=== PATIENT | female | born 1950 | race Caucasian/White ===

== ENCOUNTER → 2017-03-08 | Outpatient (CLI) | payer MEDICARE ==
--- NOTE | 2017-03-09 08:08 | MM ---
Reason for exam: screening (asymptomatic). Last mammogram was performed 1 year ago. History: Patient is postmenopausal. Family history of breast cancer in mother. Took estrogen for 1 year beginning at age 52. Physical Findings: A clinical breast exam by your physician is recommended on an annual basis and results should be correlated with mammographic findings. MG 3D Screening Mammo W/Cad Bilateral CC and MLO view(s) were taken. Prior study comparison: March 04, 2016, bilateral MG 3d screening mammo w/cad. February 26, 2015, bilateral MG screening mammo w CAD. The breast tissue is almost entirely fat. No significant changes when compared with prior studies. ASSESSMENT: Benign, BI-RAD 2 RECOMMENDATION: Routine screening mammogram of both breasts in 1 year.
== END | disposition home or self-care (01) ==
LOC: RADMAMWWP 09:29
PROVIDERS: ATTEND Family Medicine
DX: Z12.31 Encounter for screening mammogram for malignant neoplasm of breast (principal)
CPT/HCPCS: 77063; G0202

== ENCOUNTER → 2017-05-27 | Outpatient (CLI) | payer MEDICARE ==
[2017-05-27 14:38] LABS: Magnesium 1.5 mg/dL (1.6-2.3); Potassium 3.3 mmol/L (3.5-5.1)
== END | disposition home or self-care (01) ==
LOC: LABWHC1 13:17
PROVIDERS: ATTEND Family Medicine
DX: E87.6 Hypokalemia (principal)
CPT/HCPCS: 36415; 83735; 84132

== ENCOUNTER → 2018-04-06 | Outpatient (CLI) | payer MEDICARE ==
--- NOTE | 2018-04-07 11:28 | MM ---
Reason for exam: screening (asymptomatic). Last mammogram was performed 1 year and 1 month ago. History: Patient is postmenopausal. Family history of breast cancer in mother. Took estrogen for 1 year beginning at age 52. Physical Findings: A clinical breast exam by your physician is recommended on an annual basis and results should be correlated with mammographic findings. MG 3D Screening Mammo W/Cad Bilateral CC and MLO view(s) were taken. Prior study comparison: March 08, 2017, bilateral MG 3d screening mammo w/cad. March 04, 2016, bilateral MG 3d screening mammo w/cad. The breast tissue is heterogeneously dense. This may lower the sensitivity of mammography. Finding: There are typically benign calcifications in the left breast. There is no discrete abnormality. No significant changes in finding since March 08, 2017 and March 04, 2016. ASSESSMENT: Benign, BI-RAD 2 RECOMMENDATION: Routine screening mammogram of both breasts in 1 year.
== END | disposition home or self-care (01) ==
LOC: RADMAMWWP 07:53
PROVIDERS: ATTEND Family Medicine
DX: Z12.31 Encounter for screening mammogram for malignant neoplasm of breast (principal)
CPT/HCPCS: 77063; 77067

== ENCOUNTER → 2018-08-09 | Outpatient (CLI) | payer MEDICARE ==
--- NOTE | 2018-08-09 15:10 | XR ---
EXAM TYPE: LUMBAR SPINE X RAY SERIES COMPARISON: NONE HISTORY: Back pain TECHNIQUE: 4 views are submitted. FINDINGS: Alignment is anatomic. The pedicles are intact. The transverse processes are intact. There is no s pondylolysis or spondylolisthesis. Curvature the spine noted a grade 1 anterolisthesis L4 and L5 and multilevel degenerative disc disease and facet arthropathy. There is a curvature of the spine. IMPRESSION: 1. Multilevel severe degenerative disc disease and facet arthropathy with probable foraminal encroach ment L4-5 and L5-S1. 2. Grade 1 anterolisthesis L4 on L5.
--- NOTE | 2018-08-09 15:11 | XR ---
EXAMINATION TYPE: XR cervical spine limited DATE OF EXAM: 08/09/2018 COMPARISON: NONE HISTORY: Pain TECHNIQUE: Four views are submitted. FINDINGS: The odontoid is intact. There are no compression deformities. The prevertebral soft tissue structur es are within normal limits. Multilevel facet arthropathy and severe degenerative disc disease most marked findings extending from level C3-C7. Loss the normal cervical stenosis. IMPRESSION: 1. Multilevel severe degenerative disc disease and facet arthropathy. Recommend follow-up MRI.
== END | disposition home or self-care (01) ==
LOC: RADXRMAIN 14:30
PROVIDERS: ATTEND Chiropractor
DX: M43.16 Spondylolisthesis, lumbar region (principal); M51.36 Other intervertebral disc degeneration, lumbar region; M46.86 Other specified inflammatory spondylopathies, lumbar region; M50.31 Other cervical disc degeneration, high cervical region; M46.82 Other specified inflammatory spondylopathies, cervical region; M99.03 Segmental and somatic dysfunction of lumbar region; M99.01 Segmental and somatic dysfunction of cervical region
CPT/HCPCS: 72040; 72100

== ENCOUNTER → 2019-04-14 | Outpatient (CLI) | payer MEDICARE ==
--- NOTE | 2019-04-17 09:53 | MM ---
Reason for exam: screening (asymptomatic). Last mammogram was performed 1 year ago. History: Patient is postmenopausal. Family history of breast cancer in mother at age 84. Took estrogen for 1 year beginning at age 52. Physical Findings: A clinical breast exam by your physician is recommended on an annual basis and results should be correlated with mammographic findings. MG 3D Screening Mammo W/Cad Bilateral CC and MLO view(s) were taken. Prior study comparison: April 06, 2018, bilateral MG 3d screening mammo w/cad. March 08, 2017, bilateral MG 3d screening mammo w/cad. Benign appearing bilateral calcifications. No suspicious abnormality on left. Right lateral asymmetry at middle depth. ASSESSMENT: Incomplete: need additional imaging evaluation, BI-RAD 0 RECOMMENDATION: Special view mammogram of the right breast. If lesion persists on supplemental views, image directed ultrasound is recommended. [facility] will attempt to contact patient to return for supplemental views and ultrasound if indicated.
== END | disposition home or self-care (01) ==
LOC: RADMAMWWP 10:39
PROVIDERS: ATTEND Family Medicine
DX: Z12.31 Encounter for screening mammogram for malignant neoplasm of breast (principal)
CPT/HCPCS: 77063; 77067

== ENCOUNTER → 2019-04-20 | Outpatient (CLI) | payer MEDICARE ==
--- NOTE | 2019-04-20 14:24 | MM ---
Reason for exam: additional evaluation requested from abnormal screening. Last mammogram was performed less than 1 month ago. History: Patient is postmenopausal. Family history of breast cancer in mother at age 84. Took estrogen for 1 year beginning at age 52. Physical Findings: Nurse did not find any significant physical abnormalities on exam. MG 3D Work Up W/Cad RT Spot compression CC, spot compression MLO, and ML view(s) were taken of the right breast. Prior study comparison: April 14, 2019, bilateral MG 3d screening mammo w/cad. April 06, 2018, bilateral MG 3d screening mammo w/cad. The breast tissue is heterogeneously dense. This may lower the sensitivity of mammography. No distinct lesion persists. Area correlates with scar tissue. These results were verbally communicated with the patient and result sheet given to the patient on 04/20/19. ASSESSMENT: Benign, BI-RAD 2 RECOMMENDATION: Return to routine screening mammogram schedule for both breasts.
== END | disposition home or self-care (01) ==
LOC: RADMAMWWP 13:15
PROVIDERS: ATTEND Family Medicine
DX: R92.8 Other abnormal and inconclusive findings on diagnostic imaging of breast (principal)
CPT/HCPCS: 77065; G0279; 77061

== ENCOUNTER → 2020-06-06 | Outpatient (CLI) | payer MEDICARE ==
--- NOTE | 2020-06-07 14:17 | MM ---
Reason for exam: screening (asymptomatic). Last mammogram was performed 1 year and 2 months ago. History: Patient is postmenopausal. Family history of breast cancer in mother at age 84. Took estrogen for 1 year beginning at age 52. Physical Findings: A clinical breast exam by your physician is recommended on an annual basis and results should be correlated with mammographic findings. MG 3D Screening Mammo W/Cad Bilateral CC and MLO view(s) were taken. Prior study comparison: April 20, 2019, right breast MG 3d work up w/cad RT. April 14, 2019, bilateral MG 3d screening mammo w/cad. There are scattered fibroglandular densities. No significant changes when compared with prior studies. ASSESSMENT: Benign, BI-RAD 2 RECOMMENDATION: Routine screening mammogram of both breasts in 1 year.
== END | disposition home or self-care (01) ==
LOC: RADMAMWWP 09:33
PROVIDERS: ATTEND Family Medicine
DX: Z12.31 Encounter for screening mammogram for malignant neoplasm of breast (principal)
CPT/HCPCS: 77063; 77067

== ENCOUNTER → 2021-09-10 | Outpatient (CLI) | payer MEDICARE ==
--- NOTE | 2021-09-12 11:31 | MM ---
Reason for exam: screening (asymptomatic). Last mammogram was performed 1 year and 3 months ago. History: Patient is postmenopausal. Family history of breast cancer in mother at age 84. Took estrogen for 1 year beginning at age 52. Physical Findings: A clinical breast exam by your physician is recommended on an annual basis and results should be correlated with mammographic findings. MG 3D Screening Mammo W/Cad Bilateral CC and MLO view(s) were taken. Prior study comparison: June 06, 2020, bilateral MG 3d screening mammo w/cad. April 20, 2019, right breast MG 3d work up w/cad RT. There are scattered fibroglandular densities. There is chronic nodularity in the right breast. No significant changes when compared with prior studies. ASSESSMENT: Benign, BI-RAD 2 RECOMMENDATION: Routine screening mammogram of both breasts in 1 year.
== END | disposition home or self-care (01) ==
LOC: RADMAMWWP 11:24
PROVIDERS: ATTEND Family Medicine
DX: Z12.31 Encounter for screening mammogram for malignant neoplasm of breast (principal); Z80.3 Family history of malignant neoplasm of breast; Z78.0 Asymptomatic menopausal state
CPT/HCPCS: 77063; 77067

== ENCOUNTER → 2022-09-09 | Outpatient (CLI) | payer MEDICARE ==
--- NOTE | 2022-09-09 11:04 | XR ---
EXAMINATION TYPE: XR chest 2V DATE OF EXAM: 09/09/2022 9:47 AM COMPARISON: None TECHNIQUE: XR chest 2V Frontal and lateral views of the chest. CLINICAL INDICATION:Female, 72 years old with history of R05.9 COUGH, UNSPECIFIED; FINDINGS: Lungs/Pleura: There is no evidence of pleural effusion, focal consolidation, or pneumothorax. Pulmonary vascularity: Unremarkable. Heart/mediastinum: Cardiomediastinal silhouette is unremarkable. Musculoskeletal: No acute osseous pathology. IMPRESSION: No acute cardiopulmonary disease/process.
== END | disposition home or self-care (01) ==
LOC: RADXRMAIN 09:17
PROVIDERS: ATTEND Family Medicine
DX: R05.9 Cough, unspecified (principal)
CPT/HCPCS: 71046

== ENCOUNTER 2022-09-17 08:50 | Inpatient (IN) | payer MEDICARE ==
[2022-09-17] MEDS ORDERED: SODIUM CHLORIDE 0.9% 500 ML 500 ML IV STA (09:16)
--- NOTE | 2022-09-17 09:39 | XR ---
EXAMINATION TYPE: XR chest 2V DATE OF EXAM: 09/17/2022 COMPARISON: 09/01/2022 TECHNIQUE: PA and lateral views submitted. HISTORY: Shortness of breath FINDINGS: There is new peripheral based density along the lateral margin right lower lung field. Left lung galindo r. No pleural effusion or pneumothorax. Arthropathy of the shoulders. Degenerative changes spine. Hea rt size normal. Atherosclerotic change aorta. Arthropathy of the shoulders. IMPRESSION: 1. Patchy new area of vague density along the lateral margin right lower lung field not seen on prior exam. Could represent early developing infiltrate favored over neoplasm follow up until resolution r ecommended.
[2022-09-17 09:51] LABS: Albumin 3.7 g/dL (3.5-5.0); Calcium 8.8 mg/dL (8.4-10.2); Magnesium 1.6 mg/dL (1.6-2.3); Potassium 3.2 mmol/L (3.5-5.1); Total Bilirubin 1.6 mg/dL (0.2-1.3); Total Protein 6.9 g/dL (6.3-8.2)
[2022-09-17] MEDS ORDERED: SODIUM CHLORIDE 0.9% 1,000 ML IV STA (10:02)
[2022-09-17 10:07] LABS: INR 1.1 (<1.2); Partial Thromboplastin Time 22.1 sec (22.0-30.0); Prothrombin Time 11.5 sec (9.0-12.0)
[2022-09-17 10:10] LABS: Basophils # (A) 0.1 k/uL (0-0.2); Basophils % (A) 1 %; Eosinophils # (A) 0.3 k/uL (0-0.7); Eosinophils % (A) 2 %; HCT 42.7 % (34.0-46.0); HGB 14.1 gm/dL (11.4-16.0); Lymphocytes # (A) 1.1 k/uL (1.0-4.8); Lymphocytes % (A) 9 %; MCH 30.3 pg (25.0-35.0); MCHC 33.1 g/dL (31.0-37.0); MCV 91.3 fL (80.0-100.0); Mean Platelet Volume 9.7; Monocytes # (A) 0.9 k/uL (0-1.0); Monocytes % (A) 7 %; Neutrophils # (A) 10.2 k/uL (1.3-7.7); Neutrophils % (A) 80 %; Platelet Count 252 k/uL (150-450); RBC 4.67 m/uL (3.80-5.40); RDW 12.2 % (11.5-15.5); WBC 12.7 k/uL (3.8-10.6)
[2022-09-17] MEDS ORDERED: HEPARIN SODIUM 1,000 UN/ML (10ML VL) IV ONE (10:20)
[2022-09-17] MEDS: HEPARIN SOD,PORK IN 0.45% NACL 25,000 UNIT in 0.45% NACL 1 250ML.BAG IV SCH (10:48)
--- NOTE | 2022-09-17 11:03 | CT ---
EXAMINATION TYPE: CT chest angio for PE CT DLP: 371.6 mGycm, Automated exposure control for dose reduction was used. DATE OF EXAM: 09/17/2022 10:45 AM COMPARISON: . Chest radiograph from same day. CLINICAL INDICATION:Female, 72 years old with history of Difficulty breathing elevated d-dimer; SOB TECHNIQUE/CONTRAST: CTA scan of the thorax is performed with IV Contrast, patient injected with 60 mL of Isovue 370, pulm onary embolism protocol. MIP images are created and reviewed. FINDINGS: Pulmonary Artery: Multiple filling defects demonstrated within the pulmonary arterial vasculature inc luding the left lingular and lower lobe subsegmental pulmonary arteries and more burden within the ri ght main pulmonary artery extending into the right middle lobe and right lower lobe segmental and sub segmental pulmonary arteries. No CT evidence for right heart strain. Lungs/Pleura: No pleural effusion or pneumothorax. Posterior right upper lobe nodular density measuri ng up to 5 mm. (Series 406, image 28). Patchy peripheral right lower lobe wedge-shaped ground glass o pacities. Airway: Large airways are patent. Heart: Heart is within normal limits for size.. Vasculature: No evidence of aortic aneurysm. Mediastinum: No gross evidence of adenopathy. Musculoskeletal: No acute osseous abnormalities. Mild multilevel degenerative disc disease. No aggres sive osseous lesion. Soft Tissues: Unremarkable. Lower neck: No significant findings. Upper Abdomen: Several hypodense ill-defined lesions within the liver with example including a caudat e lobe lesion measuring up to 2.8 cm with additional partially visualized lesions in the inferior rig ht hepatic lobe measuring at least 3.1 cm. Ill-defined hypodense lesion within the partially visualiz ed pancreatic body measuring 4.4 x 3.2 cm. Additional peripancreatic prominent lymph nodes measuring up to 8 mm (series 401, image 131). Additional 0.9 cm nodule in the right epiphrenic anterior fat (se jodee 401, image 105). IMPRESSION: 1. Bilateral pulmonary embolisms involving the right main pulmonary artery extending into the right m iddle lobe and lower lobe segmental and subsegmental pulmonary arteries with pulmonary emboli in the lingular and left lower lobe subsegmental pulmonary arteries. No CT evidence for right heart strain a t this time. 2. Patchy peripheral groundglass wedge-shaped airspace opacities within the right lower lobe favored to represent pulmonary infarcts. 3. Partially visualized pancreatic mass measuring up to 4.4 cm with additional enlarged peripancreati c lymph nodes and multiple hypodense liver lesions. Findings are concerning for pancreatic cancer wit h metastasis to the liver. Dedicated CT abdomen pelvis pancreatic mass protocol is recommended. 4. Nonspecific right upper lobe pulmonary nodular density measuring up to 5 mm. Metastasis is not exc luded. Findings called to and discussed with Dr. Pedraza on 09/17/2022 at 10:58 AM.
--- NOTE | 2022-09-17 11:37 | ED ---
General Adult HPI - General Chief complaint: Shortness of Breath Stated complaint: SOB Time Seen by Provider: 09/17/22 09:00 Source: patient, family, RN notes reviewed, old records reviewed Mode of arrival: ambulatory Limitations: no limitations - History of Present Illness Initial comments: This is a 72-year-old female who has been feeling fatigued and weaker for the last 2 months. Patient states over the last week she's had significant difficulty breathing and is to be getting progressively worse. Patient denies any chest pain or palpitations. Patient denies any fever chills or cough. Patient denies any headache patient denies numbness or focal weakness. Patient denies lightheadedness or dizziness or near syncopal episode. Patient denies any leg swelling or calf tenderness. Patient denies any recent long trips or travel. - Related Data Home Medications Medication Instructions Recorded Confirmed Atorvastatin [Lipitor] 80 mg PO HS 01/23/16 01/23/16 Meloxicam [Mobic] 15 mg PO DAILY 01/23/16 01/23/16 Ranitidine HCl [Zantac] 150 mg PO BID 01/23/16 01/23/16 hydroCHLOROthiazide [Hydrodiuril] 25 mg PO DAILY 01/23/16 01/23/16 traMADol HCL [Ultram] 50 mg PO Q6HR PRN 01/23/16 01/23/16 Allergies Allergy/AdvReac Type Severity Reaction Status Date / Time No Known Allergies Allergy Verified 09/17/22 08:56 Review of Systems ROS Statement: Those systems with pertinent positive or pertinent negative responses have been documented in the HPI. ROS Other: All systems not noted in ROS Statement are negative. Past Medical History Past Medical History: GERD/Reflux, Hyperlipidemia, Hypertension History of Any Multi-Drug Resistant Organisms: None Reported Past Surgical History: Section, Hysterectomy, Joint Replacement, Orthopedic Surgery Past Psychological History: No Psychological Hx Reported Smoking Status: Never smoker Past Alcohol Use History: None Reported Past Drug Use History: None Reported General Exam - General Exam Comments Initial Comments: GENERAL: Patient is well-developed and well-nourished. Patient is nontoxic and well- hydrated and is in patient is in mild distress and seems very fatigued ENT: Neck is soft and supple. No significant lymphadenopathy is noted. Oropharynx is clear. Moist mucous membranes. Neck has full range of motion without eliciting any pain. EYES: The sclera were anicteric and conjunctiva were pink and moist. Extraocular movements were intact and pupils were equal round and reactive to light. Eyelids were unremarkable. PULMONARY: Unlabored respirations. Good breath sounds bilaterally. No audible rales rhonchi or wheezing was noted. CARDIOVASCULAR: There is a regular rate and rhythm without any murmurs gallops or rubs. ABDOMEN: Soft and nontender with normal bowel sounds. SKIN: Skin is clear with no lesions or rashes and otherwise unremarkable. NEUROLOGIC: Patient is alert and oriented x3. Cranial nerves II through XII are grossly intact. Motor and sensory are also intact. Normal speech, volume and content. Symmetrical smile. MUSCULOSKELETAL: Normal extremities with adequate strength and full range of motion. LYMPHATICS: No significant lymphadenopathy is noted PSYCHIATRIC: Normal psychiatric evaluation. Limitations: no limitations Course Vital Signs 09/17/22 09/17/22 09/17/22 08:51 09:25 10:15 Temperature 97.4 F L Pulse Rate 122 H 102 H Respiratory 18 20 20 Rate Blood Pressure 127/82 O2 Sat by Pulse 98 99 Oximetry 09/17/22 10:49 Temperature Pulse Rate 96 Respiratory Rate Blood Pressure O2 Sat by Pulse 99 Oximetry Medical Decision Making - Medical Decision Making EKG as interpreted by myself shows a sinus tachycardia at 109 bpm WV interval 136 dresses 73 QT interval is 320 QTC is 392. Patient's EKG shows no ST segment elevation or depression. Was pt. sent in by a medical professional or institution (, PA, TELECOMMUNICATIONS LINESWORKER, urgent care, hospital, or penitentiary...) When possible be specific @ -[No] Did you speak to anyone other than the patient for history (EMS, parent, family, police, friend...)? What history was obtained from this source @ - and daughter gave some of the history that the patient had forgotten Did you review nursing and triage notes (agree or disagree)? Why? @ -[I reviewed and agree with nursing and triage notes] Were old charts reviewed (outside hosp., previous admission, EMS record, old EKG, old radiological studies, urgent care reports/EKG's, penitentiary records)? Report findings @ -[No old charts were reviewed] Differential Diagnosis (chest pain, altered mental status, abdominal pain women, abdominal pain men, vaginal bleeding, weakness, fever, dyspnea, syncope, headache, dizziness, GI bleed, back pain, seizure, CVA, palpatations, mental health)? @ -Differential Dyspnea: Coronary syndrome, arrhythmia, tamponade, asthma, COPD, pulmonary embolism, pneumonia, pneumothorax, pulmonary effusion, anaphylaxis, diabetic ketoacidosis, flailed chest, pulmonary contusion, diaphragmatic rupture, anemia, neuromuscular, this is not meant to be an all-inclusive list. EKG interpreted by me (3pts min.). @ -[As above] X-rays interpreted by me (1pt min.). @ -Checks x-ray was interpreted by myself showed no acute abnormality. CT interpreted by me (1pt min.). @ -Computed tomography scan was interpreted by myself showed urinary embolism as well as a pancreatic mass with abnormalities in the liver. U/S interpreted by me (1pt. min.). @ -[None done] What testing was considered but not performed or refused? (CT, X-rays, U/S, labs)? Why? @ -I considered doing ultrasounds of bilateral legs but since the patient started being treated it will be done as an inpatient. Patient also have an echo done as an inpatient not in the emergency department. What meds were considered but not given or refused? Why? @ -Markers for pancreatitis we done as an inpatient Did you discuss the management of the patient with other professionals (professionals i.e. , PA, TELECOMMUNICATIONS LINESWORKER, lab, RT, psych nurse, social services manager, dredge lever operator, teacher, employment security officer, rn field case manager)? Give summary @ -I spoke with Dr. rodas doctor she agreed to admit the patient. I spoke with Dr. Hess about a pulmonary embolism and he was in agreement with the current course of treatment Was smoking cessation discussed for >3mins.? @ -[No] Was critical care preformed (if so, how long)? @ -35 minutes. Patient was placed on high-dose heparin for the pulmonary embolisms patient will have a vascular consult as well as oncology Were there social determinants of health that impacted care today? How? (Homelessness, low income, unemployed, alcoholism, drug addiction, transportation, low edu. Level, literacy, decrease access to med. care, custodial, rehab)? @ -[No] Was there de-escalation of care discussed even if they declined (Discuss DNR or withdrawal of care, Hospice)? DNR status @ -[No] What co-morbidities impacted this encounter? (DM, HTN, Smoking, COPD, CAD, Cancer, CVA, ARF, Chemo, Hep., AIDS, mental health diagnosis, sleep apnea, morbid obesity)? @ -[None] Was patient admitted / discharged? Hospital course, mention meds given and route, prescriptions, significant lab abnormalities, going to OR and other pertinent info. @ -Patient will be admitted to the hospital and will be on high-dose heparin Undiagnosed new problem with uncertain prognosis? @ -Patient has a mass in the pancreas and further work up is necessary to figure out prognosis Drug Therapy requiring intensive monitoring for toxicity (Heparin, Nitro, Insulin, Cardizem)? @ -[No] Were any procedures done? @ -[No] Diagnosis/symptom? @ -Pulmonary embolisms Acute, or Chronic, or Acute on Chronic? @ -Acute Uncomplicated (without systemic symptoms) or Complicated (systemic symptoms)? @ -Complicated Side effects of treatment? @ -No Exacerbation, Progression, or Severe Exacerbation? @ -[No] Poses a threat to life or bodily function? How? (Chest pain, [place], [place], pneumonia, PE, COPD, DKA, ARF, appy, cholecystitis, CVA, Diverticulitis, Homicidal, Suicidal, threat to staff... and all critical care pts) @ -. Pulmonary embolisms because severe hypoxia resulting in end organ dysfunction Diagnosis/symptom? @ -Pancreatic mass Acute, or Chronic, or Acute on Chronic? @ -Acute Uncomplicated (without systemic symptoms) or Complicated (systemic symptoms)? @ -[default] Side effects of treatment? @ -[none] Exacerbation, Progression, or Severe Exacerbation] @ -[no] Poses a threat to life or bodily function? @ -Yes potentially metastatic cancer to the liver to have detrimental effects on the liver as well as the pancreas - Lab Data Result diagrams: 09/17/22 09:16 09/17/22 09:16 Lab Results 09/17/22 09/17/22 09/17/22 Range/Units 09:16 09:16 09:16 WBC 12.7 H (3.8-10.6) k/uL RBC 4.67 (3.80-5.40) m/uL Hgb 14.1 (11.4-16.0) gm/dL Hct 42.7 (34.0-46.0) % MCV 91.3 (80.0-100.0) fL MCH 30.3 (25.0-35.0) pg MCHC 33.1 (31.0-37.0) g/dL RDW 12.2 (11.5-15.5) % Plt Count 252 (150-450) k/uL MPV 9.7 Neutrophils % 80 % Lymphocytes % 9 % Monocytes % 7 % Eosinophils % 2 % Basophils % 1 % Neutrophils # 10.2 H (1.3-7.7) k/uL Lymphocytes # 1.1 (1.0-4.8) k/uL Monocytes # 0.9 (0-1.0) k/uL Eosinophils # 0.3 (0-0.7) k/uL Basophils # 0.1 (0-0.2) k/uL PT 11.5 (9.0-12.0) sec INR 1.1 (<1.2) APTT 22.1 (22.0-30.0) sec D-Dimer >34.10 H (<0.60) mg/L FEU Sodium 135 L (137-145) mmol/L Potassium 3.2 L (3.5-5.1) mmol/L Chloride 99 (98-107) mmol/L Carbon Dioxide 25 (22-30) mmol/L Anion Gap 11 mmol/L BUN 11 (7-17) mg/dL Creatinine 0.96 (0.52-1.04) mg/dL Est GFR (CKD-EPI)AfAm 68 (>60 ml/min/1.73 sqM) Est GFR (CKD-EPI)NonAf 59 (>60 ml/min/1.73 sqM) Glucose 184 H (74-99) mg/dL Plasma Lactic Acid Alexi (0.7-2.0) mmol/L Calcium 8.8 (8.4-10.2) mg/dL Magnesium 1.6 (1.6-2.3) mg/dL Total Bilirubin 1.6 H (0.2-1.3) mg/dL AST 44 H (14-36) U/L ALT 35 H (4-34) U/L Alkaline Phosphatase 306 H (38-126) U/L Troponin I (0.000-0.034) ng/mL NT-Pro-B Natriuret Pep pg/mL Total Protein 6.9 (6.3-8.2) g/dL Albumin 3.7 (3.5-5.0) g/dL TSH 3.560 (0.465-4.680) mIU/L Influenza Type A (PCR) (Not Detectd) Influenza Type B (PCR) (Not Detectd) RSV (PCR) (Not Detectd) SARS-CoV-2 (PCR) (Not Detectd) 09/17/22 09/17/22 09/17/22 Range/Units 09:16 09:16 09:16 WBC (3.8-10.6) k/uL RBC (3.80-5.40) m/uL Hgb (11.4-16.0) gm/dL Hct (34.0-46.0) % MCV (80.0-100.0) fL MCH (25.0-35.0) pg MCHC (31.0-37.0) g/dL RDW (11.5-15.5) % Plt Count (150-450) k/uL MPV Neutrophils % % Lymphocytes % % Monocytes % % Eosinophils % % Basophils % % Neutrophils # (1.3-7.7) k/uL Lymphocytes # (1.0-4.8) k/uL Monocytes # (0-1.0) k/uL Eosinophils # (0-0.7) k/uL Basophils # (0-0.2) k/uL PT (9.0-12.0) sec INR (<1.2) APTT (22.0-30.0) sec D-Dimer (<0.60) mg/L FEU Sodium (137-145) mmol/L Potassium (3.5-5.1) mmol/L Chloride (98-107) mmol/L Carbon Dioxide (22-30) mmol/L Anion Gap mmol/L BUN (7-17) mg/dL Creatinine (0.52-1.04) mg/dL Est GFR (CKD-EPI)AfAm (>60 ml/min/1.73 sqM) Est GFR (CKD-EPI)NonAf (>60 ml/min/1.73 sqM) Glucose (74-99) mg/dL Plasma Lactic Acid Alexi 4.8 H* (0.7-2.0) mmol/L Calcium (8.4-10.2) mg/dL Magnesium (1.6-2.3) mg/dL Total Bilirubin (0.2-1.3) mg/dL AST (14-36) U/L ALT (4-34) U/L Alkaline Phosphatase (38-126) U/L Troponin I <0.012 (0.000-0.034) ng/mL NT-Pro-B Natriuret Pep 318 pg/mL Total Protein (6.3-8.2) g/dL Albumin (3.5-5.0) g/dL TSH (0.465-4.680) mIU/L Influenza Type A (PCR) (Not Detectd) Influenza Type B (PCR) (Not Detectd) RSV (PCR) (Not Detectd) SARS-CoV-2 (PCR) (Not Detectd) 09/17/22 Range/Units 10:15 WBC (3.8-10.6) k/uL RBC (3.80-5.40) m/uL Hgb (11.4-16.0) gm/dL Hct (34.0-46.0) % MCV (80.0-100.0) fL MCH (25.0-35.0) pg MCHC (31.0-37.0) g/dL RDW (11.5-15.5) % Plt Count (150-450) k/uL MPV Neutrophils % % Lymphocytes % % Monocytes % % Eosinophils % % Basophils % % Neutrophils # (1.3-7.7) k/uL Lymphocytes # (1.0-4.8) k/uL Monocytes # (0-1.0) k/uL Eosinophils # (0-0.7) k/uL Basophils # (0-0.2) k/uL PT (9.0-12.0) sec INR (<1.2) APTT (22.0-30.0) sec D-Dimer (<0.60) mg/L FEU Sodium (137-145) mmol/L Potassium (3.5-5.1) mmol/L Chloride (98-107) mmol/L Carbon Dioxide (22-30) mmol/L Anion Gap mmol/L BUN (7-17) mg/dL Creatinine (0.52-1.04) mg/dL Est GFR (CKD-EPI)AfAm (>60 ml/min/1.73 sqM) Est GFR (CKD-EPI)NonAf (>60 ml/min/1.73 sqM) Glucose (74-99) mg/dL Plasma Lactic Acid Alexi (0.7-2.0) mmol/L Calcium (8.4-10.2) mg/dL Magnesium (1.6-2.3) mg/dL Total Bilirubin (0.2-1.3) mg/dL AST (14-36) U/L ALT (4-34) U/L Alkaline Phosphatase (38-126) U/L Troponin I (0.000-0.034) ng/mL NT-Pro-B Natriuret Pep pg/mL Total Protein (6.3-8.2) g/dL Albumin (3.5-5.0) g/dL TSH (0.465-4.680) mIU/L Influenza Type A (PCR) Not Detected (Not Detectd) Influenza Type B (PCR) Not Detected (Not Detectd) RSV (PCR) Not Detected (Not Detectd) SARS-CoV-2 (PCR) Not Detected (Not Detectd) Critical Care Time Critical Care Time: Yes Total Critical Care Time: 35 Disposition Clinical Impression: Pulmonary embolism, Pancreatic mass Disposition: ADMITTED IP TO THIS HOSP Referrals: Xiang Carmichael DO [Primary Care Provider] - 1-2 days Time of Disposition: 11:37
[2022-09-17 11:40] LABS: Amorphous Sediment,Urine Rare /hpf; Appearance,Urine Turbid (Clear); Bacteria,Urine Moderate /hpf; Bilirubin,Urine 1+ (Negative); Blood,Urine Negative (Negative); Color,Urine Dark Yellow; Glucose,Urine (UA) Negative (Negative); Hyaline Casts,Urine 25 /lpf (0-2); Ketones,Urine Negative (Negative); Leukocyte Esterase,Urine Large (Negative); Mucus,Urine Many /hpf; Nitrite,Urine Negative (Negative); Protein,Urine 2+ (Negative); Squamous Epithelial Cell,Urine 43 /hpf (0-4); WBC,Urine 163 /hpf (0-5)
[2022-09-17] MEDS ORDERED: SODIUM CHLORIDE 0.9% 1,000 ML IV ONE (12:07)
[2022-09-17] MEDS ORDERED: IOPAMIDOL CONTRAST (ORAL USE) VIAL PO PRN (13:25)
[2022-09-17] MEDS ORDERED: ATORVASTATIN 80 MG TAB PO SCH (13:30)
[2022-09-17] MEDS ORDERED: FAMOTIDINE 20 MG TAB PO SCH (13:30)
--- NOTE | 2022-09-17 15:04 | US ---
EXAMINATION TYPE: US venous doppler duplex LE DATE OF EXAM: 09/17/2022 2:43 PM COMPARISON: NONE CLINICAL HISTORY: 72-year-old female Elevated d-dimer and pulmonary embolisms. PE'S, right leg calf p ain SIDE PERFORMED: Bilateral TECHNIQUE: The lower extremity deep venous system is examined utilizing real time linear array sonog steven with graded compression, doppler sonography and color-flow sonography. FINDINGS: VESSELS IMAGED: Common Femoral Vein Deep Femoral Vein Greater Saphenous Vein * Femoral Vein Popliteal Vein Small Saphenous Vein * Proximal Calf Veins (* superficial vessels) Right Leg: Internal echoes with non compressible veins from PTV's extending up through popliteal vei ns. No color flow is detected on this side. Left Leg: Internal echoes with non compressible veins mid popiteal extending up through lower femora l vein. Some central color flow was detected on this side. IMPRESSION: 1. Exam positive for bilateral lower extremity DVT. 2. On the right, no color-flow is detected and the deep venous system is noncompressible from the gordo f up into the popliteal veins. 3. On the left, DVT extends from the lower femoral vein down into the mid popliteal vein. Small amoun t of central color flow is demonstrated but the vessels are noncompressible.
--- NOTE | 2022-09-17 15:18 | CT ---
EXAMINATION TYPE: CT brain wo con CT DLP: 1076.4 mGycm, Automated exposure control for dose reduction was used. DATE OF EXAM: 09/17/2022 3:11 PM COMPARISON: None CLINICAL INDICATION:Female, 72 years old with history of new mass found, ams, New mass, AMS TECHNIQUE: Brain: Multiple axial CT images of the brain were obtained without IV contrast. Coronal and sagittal reformats reviewed. FINDINGS: Brain: Extra-axial spaces: No abnormal extra-axial fluid collections. Ventricular system: Within normal limits Cerebral parenchyma: No acute intraparenchymal hemorrhage or mass effect. The kam-white junction is well differentiated. Scattered hypoattenuating areas are seen within the white matter. Cerebellum: Unremarkable. Mass effect: No evidence of midline shift. Intracranial vasculature: Atherosclerotic calcifications of the intracranial vessels. Soft tissues: Normal. Calvarium/osseous structures: No depressed skull fracture. Paranasal sinuses and mastoid air cells: Clear Visualized orbits: Orbital contents are intact. IMPRESSION: 1. No acute intracranial process. No suspicious masses identified within the limitations of a noncont rast exam. 2. Nonspecific white matter changes, likely secondary to chronic small vessel ischemic disease.
--- NOTE | 2022-09-17 15:31 | HP ---
HISTORY AND PHYSICAL CHIEF COMPLAINT: Weakness and shortness of breath. HISTORY OF PRESENT ILLNESS: This is a 72-year-old woman with a past medical history of multiple medical problems including hypertension and hyperlipidemia, being followed by Dr. Xiang Carmichael in the outpatient, not feeling well over the past several weeks. The patient apparently has loss of weight and currently short of breath. The patient came to [facility] and was found to have pulmonary embolism mainly on the right side. The patient was also noted to have pancreatic mass and admitted for further evaluation and treatment. There is no history of any fever, rigors, or chills at this time. The lactic acid was found to be 4.8. UA shows possible evidence of UTI also. PAST MEDICAL HISTORY: Reviewed includes GERD, hypertension, and hyperlipidemia. HOME MEDICATIONS: Reviewed include magnesium. Doses and the rest of the medications are noted. ALLERGIES: None. FAMILY HISTORY: No history of heart disease or strokes in the family. SOCIAL HISTORY: No history of smoking. No alcohol intake. REVIEW OF SYSTEMS: Fourteen-point review is negative except as mentioned earlier. PHYSICAL EXAMINATION: VITAL SIGNS: Pulse is 102, blood pressure 127/82, respirations 18. HEENT: Conjunctivae are normal. NECK: No jugular venous distention. CARDIOVASCULAR: S1 and S2 muffled. RESPIRATORY: Few scattered rhonchi. Breathing efforts increased. ABDOMEN: Soft, nontender, and obese. No masses palpable. LEGS: No edema. No swelling. NERVOUS SYSTEM: Higher functions as mentioned earlier. Moves all 4 limbs. Nonfocal. LYMPHATICS: No lymph node palpable in neck, axillae, or groins. SKIN: No ulcers or rashes. JOINTS: No active deforming arthropathy. LABORATORY DATA: WBC 12.7. The rest of the labs are noted. The rest of the x-ray and CT scan are reviewed personally. ASSESSMENT: 1. Shortness of breath with possible acute pulmonary embolism. 2. Possible pancreatic mass with malignancy with metastasis. 3. Possible acute urinary tract infection present on admission. 4. Increased white blood cell count. 5. Hypertension. 6. Hyperlipidemia. 7. Gastroesophageal reflux disease. 8. Multiple medical issues. RECOMMENDATIONS: This is a 72-year-old woman, who presented with multiple complex medical issues. At this time, I would recommend to continue the current medications, initiate IV heparin, obtain Pulmonary and Vascular consultations. Recommend 2D echo with Doppler and ultrasound of the legs. Also, the patient has a pancreatic mass suspected in the CT angio. I would recommend a consultation with Dr. Collins and also abdominopelvic CAT scan dedicated with p.o. contrast and CT of the brain also to complete the workup. Overall prognosis is extremely guarded because of multiple complex medical issues as mentioned earlier. Discussed with the patient. Further recommendations to follow. FREDDY / JANEEN: [id number] /
--- NOTE | 2022-09-17 16:18 | P.CNPUL ---
History of Present Illness Consult date: 09/17/22 Reason for consult: pulmonary embolism History of present illness: 72-year-old female patient presented to the emergency department for worsening fatigue and tiredness along with progressive increase in exertional dyspnea and lower extremity pain. At that point, the patient underwent further investigation the emergency and the patient was found to have elevated d-dimer of 34 and a white cell count of 12.7 and a normal electrolytes with a BUN of 11 and a creatinine of 0.9. Initial lactic acid level was at 4.8. Based on this, CT antigram of the chest was done and the patient was found to have multiple pulmonary emboli involving the right main artery extending into the right middle lobe and the lower lobe segmental and subsegmental pulmonary arteries with smaller emboli in the lingula and the left lower lobe. No strain pattern. Pat bon groundglass wedge shaped airspace opacity seen in the right lower lobe could be representing an infarct. There was another 4.4 cm partially visualized pancreatic mass with enlarged peripancreatic lymph nodes and suspected hypodense lesions within the liver and the presentation was highly suspicious for metastatic pancreatic cancer. At the same time, the patient had a nonspecific right upper lobe pulmonary nodule measuring 5 mm in size. Doppler of the lower same day showed bilateral DVTs. Echocardiogram showed no significant strain pattern in the pulmonary artery pressure was estimated to be 31. She is currently on 2 L of oxygen by nasal cannula. She is in normal sinus rhythm. No tachycardia. No pleurisy. No hemoptysis. No chest pain. Review of Systems Constitutional: Reports weakness, Reports weight loss Eyes: denies as per HPI, denies blurred vision, denies bulging eye, denies decreased vision, denies diplopia, denies discharge, denies dry eye, denies irritation, denies itching, denies pain, denies photophobia, denies loss of peripheral vision, denies loss of vision, denies tunnel vision/blind spots Ears: deny: decreased hearing, ear discharge, earache, tinnitus Ears, nose, mouth and throat: Reports as per HPI Breasts: absent: as per HPI, change in shape, gynecomastia, masses, nipple discharge, pain, skin changes, swelling Cardiovascular: Reports decreased exercise tolerance, Reports dyspnea on ex ertion, Reports shortness of breath Respiratory: Reports dyspnea Gastrointestinal: Reports abdominal pain Genitourinary: Reports as per HPI Menstruation: Reports as per HPI Musculoskeletal: Reports as per HPI Musculoskeletal: bilateral: ankle swelling, absent: ankle pain, ankle stiffness Integumentary: Reports as per HPI Neurological: Reports as per HPI Endocrine: Reports as per HPI Hematologic/Lymphatic: Reports as per HPI Allergic/Immunologic: Reports as per HPI Past Medical History Past Medical History: GERD/Reflux, Hyperlipidemia, Hypertension History of Any Multi-Drug Resistant Organisms: None Reported Past Surgical History: Section, Hysterectomy, Joint Replacement, Orthopedic Surgery Past Psychological History: No Psychological Hx Reported Smoking Status: Never smoker Past Alcohol Use History: None Reported Past Drug Use History: None Reported Medications and Allergies Home Medications Medication Instructions Recorded Confirmed Type Atorvastatin [Lipitor] 80 mg PO DIRECTED 01/23/16 09/17/22 History Famotidine [Pepcid] 20 mg PO BID 09/17/22 09/17/22 History Lisinopril-Hctz 10-12.5 mg 1 tab PO DAILY 09/17/22 09/17/22 History [Zestoretic 10-12.5] Magnesium Oxide [Mag-Ox] 400 mg PO DAILY 09/17/22 09/17/22 History Allergies Allergy/AdvReac Type Severity Reaction Status Date / Time No Known Allergies Allergy Verified 09/17/22 11:39 Physical Exam Vitals: Vital Signs Temp Pulse Resp BP Pulse Ox 09/17/22 13:00 82 18 142/70 98 09/17/22 10:49 96 99 09/17/22 10:15 102 H 20 99 09/17/22 09:25 20 09/17/22 08:51 97.4 F L 122 H 18 127/82 98 Intake and Output 09/17/22 09/17/22 09/17/22 06:59 14:59 22:59 Other: Weight 86.636 kg GENERAL: Patient is well-developed and well-nourished. Patient is nontoxic and well- hydrated and is in patient is in mild distress and seems very fatigued, the breathing is nonlabored and the patient is currently on 2 L of oxygen by nasal cannula with a pulse ox of 98%. Hemodynamically stable. ENT: Neck is soft and supple. No significant lymphadenopathy is noted. Oropharynx is clear. Moist mucous membranes. Neck has full range of motion without eliciting any pain. EYES: The sclera were anicteric and conjunctiva were pink and moist. Extraocular movements were intact and pupils were equal round and reactive to light. Eyelids were unremarkable. PULMONARY: Unlabored respirations. Good breath sounds bilaterally. No audible rales rhonchi or wheezing was noted. CARDIOVASCULAR: There is a regular rate and rhythm without any murmurs gallops or rubs. ABDOMEN: Soft and nontender with normal bowel sounds. SKIN: Skin is clear with no lesions or rashes and otherwise unremarkable. NEUROLOGIC: Patient is alert and oriented x3. Cranial nerves II through XII are grossly intact. Motor and sensory are also intact. Normal speech, volume and content. Symmetrical smile. MUSCULOSKELETAL: Normal extremities with adequate strength and full range of motion. There is some increased edema lower oximetry is bilaterally. LYMPHATICS: No significant lymphadenopathy is noted PSYCHIATRIC: Normal psychiatric evaluation. Results - Laboratory Findings CBC and BMP: 09/17/22 09:16 09/17/22 09:16 PT/INR, D-dimer PT 11.5 sec (9.0-12.0) 09/17/22 09:16 INR 1.1 (<1.2) 09/17/22 09:16 D-Dimer >34.10 mg/L FEU (<0.60) H 09/17/22 09:16 Abnormal lab findings: Abnormal Labs 09/17/22 09/17/22 09/17/22 09:16 09:16 09:16 WBC 12.7 H Neutrophils # 10.2 H D-Dimer >34.10 H Sodium 135 L Potassium 3.2 L Glucose 184 H Plasma Lactic Acid Alexi Total Bilirubin 1.6 H AST 44 H ALT 35 H Alkaline Phosphatase 306 H Urine Appearance Urine Protein Urine Bilirubin Ur Leukocyte Esterase Urine WBC Ur Squamous Epith Cells Amorphous Sediment Urine Bacteria Hyaline Casts Urine Mucus 09/17/22 09/17/22 09/17/22 09:16 10:49 12:47 WBC Neutrophils # D-Dimer Sodium Potassium Glucose Plasma Lactic Acid Alexi 4.8 H* 2.2 H* Total Bilirubin AST ALT Alkaline Phosphatase Urine Appearance Turbid H Urine Protein 2+ H Urine Bilirubin 1+ H Ur Leukocyte Esterase Large H Urine WBC 163 H Ur Squamous Epith Cells 43 H Amorphous Sediment Rare H Urine Bacteria Moderate H Hyaline Casts 25 H Urine Mucus Many H - Diagnostic Findings CT scan - chest: image reviewed Assessment and Plan Plan: Acute bilateral pulmonary embolism, with extensive clot at the origin of the right main pulmonary artery extending into the right middle lobe and the right lower lobe in addition to filling defects on the left. The patient also has bilateral lower extremity DVT. This is a provoked event probably related to underlying malignancy as the patient has a suspicious pancreatic mass with suspicious liver lesions and pulmonary nodules consistent with metastatic disease Vital lower extremity DVTs Pancreatic mass with peripancreatic lymphadenopathy and hypodense hepatic lesions Abdominal pain secondary to above Generalized weakness Mild lactic acidosis, improving Hypertension Hyperlipidemia Plan No evidence of any hemodynamic instability or RV strain pattern. Positive jose ry pressures are not elevated and the patient has no troponin elevation Continue IV heparin CAT scan of the abdomen and pelvis with special attention to a pancreatic mass The patient will likely need a fine-needle aspirate of the liver lesion or the pancreatic lesion to establish tissue diagnosis Involving oncology Echocardiogram We'll continue to follow
--- NOTE | 2022-09-17 17:46 | CT ---
Examination Type: CT abdomen pelvis wo con Date Of Exam: 09/17/2022 History: SOB, Pancreatic mass. Had oral contrast earlier today in ER Technique: CT scan of the abdomen and pelvis is performed without oral or IV contrast. CT DLP: 977 mGycm. Automated Exposure Control for Dose Reduction was Utilized. Comparison: CT chest 09/17/2022 Findings: LIVER: There are multifocal rounded ill-defined hypodense liver lesions, with the largest measuring 4 cm diameter in segment 4A. 3.5 cm lesions are noted in segment 8 and segment 6. One and [address] lesions are seen elsewhere within the right hepatic lobe. These ill-defined hypodense liver lesio ns are consistent with metastatic neoplasm until proved otherwise. BILIARY: There is no intrahepatic or extrahepatic biliary tree dilation. Gallbladder is unremarkable. PANCREAS: There is an ill-defined and mildly lobulated 6.5 cm transverse x 4.5 cm AP x 4 cm CC pancre atic body mass. Immediately cephalad to the upper right margin of the mass is a necrotic 2 cm lymph n ode with multifocal satellite subcentimeter lymph nodes adjacent to this necrotic lymph node. * Pancreatic ductal anatomy is not dilated, and the pancreatic head and uncinate process have normal appearance. * Distal splenic vein appears to be involved, as does the distal SMV. The main portal vein does not appear to be involved. SMA does not appear involved. SPLEEN: No significant abnormality is seen. ADRENALS: No significant abnormality is seen. KIDNEYS: No significant abnormality is seen. BOWEL: No significant abnormality is seen. Stomach and duodenum have normal appearance. PERITONEAL CAVITY: No peritoneal fluid or pneumoperitoneum. OMENTUM: There is omental caking anteriorly, with greatest measurements 18 cm transverse x .5 cm AP a nd extending from the level of the kidneys caudally to the level of the hips. PELVIC VISCERA: Unremarkable. LYMPH NODES: No greater than 1cm abdominal or pelvic lymph nodes are appreciated. OSSEOUS STRUCTURES: No significant abnormality is seen. Limitation: Without use of IV contrast, this CT is limited in its sensitivity for focal visceral lesi ons, intraluminal findings, and vascular pathology. IMPRESSION: Findings consistent with pancreatic primary with multifocal liver metastases and omental caking.
[2022-09-18] MEDS: HEPARIN SOD,PORK IN 0.45% NACL 25,000 UNIT in 0.45% NACL 1 250ML.BAG IV SCH ×2 (05:37→21:40)
[2022-09-18 07:40] LABS: Basophils # (A) 0.1 k/uL (0-0.2); Basophils % (A) 1 %; Eosinophils # (A) 0.3 k/uL (0-0.7); Eosinophils % (A) 4 %; HCT 34.8 % (34.0-46.0); HGB 11.7 gm/dL (11.4-16.0); Lymphocytes # (A) 1.1 k/uL (1.0-4.8); Lymphocytes % (A) 16 %; MCH 30.5 pg (25.0-35.0); MCHC 33.5 g/dL (31.0-37.0); MCV 90.9 fL (80.0-100.0); Mean Platelet Volume 9.5; Monocytes # (A) 0.3 k/uL (0-1.0); Monocytes % (A) 5 %; Neutrophils # (A) 5.2 k/uL (1.3-7.7); Neutrophils % (A) 73 %; Platelet Count 167 k/uL (150-450); RBC 3.83 m/uL (3.80-5.40); RDW 12.6 % (11.5-15.5); WBC 7.1 k/uL (3.8-10.6)
[2022-09-18 07:57] LABS: African American GFR (CKD) >90 (>60 ml/min/1.73 sqM); Anion Gap 5 mmol/L; Blood Urea Nitrogen 10 mg/dL (7-17); Calcium 8.1 mg/dL (8.4-10.2); Carbon Dioxide 27 mmol/L (22-30); Chloride 105 mmol/L (98-107); Glucose 108 mg/dL (74-99); Non-African American GFR(CKD) 88 (>60 ml/min/1.73 sqM); Potassium 3.5 mmol/L (3.5-5.1); Sodium 137 mmol/L (137-145)
--- NOTE | 2022-09-18 09:46 | CA ---
Transthoracic Echo Report Name: Karmen Coleman Age: 72 Gender: F : 1950 Exam Date: 09/17/2022 15:09 Exam Location: [facility] Ht (in): 63 Wt (lb): 191 Ordering Physician: Santi Pedraza MD Attending/Referring Phys: Glass Curvature Gauger Bethany Cerna RDCS Procedure CPT: Indications: Pulmonary list Cardiac Hx: Technical Quality: Fair Contrast 1: Total Dose (mL): Contrast 2: Total Dose (mL): MEASUREMENTS (Male / Female) Normal Values 2D ECHO LV Diastolic Diameter PLAX 3.2 cm 4.2 - 5.9 / 3.9 - 5.3 cm LV Systolic Diameter PLAX 2.5 cm IVS Diastolic Thickness 1.5 cm 0.6 - 1.0 / 0.6 - 0.9 cm LVPW Diastolic Thickness 1.1 cm 0.6 - 1.0 / 0.6 - 0.9 cm LV Relative Wall Thickness 0.8 RV Internal Dim ED PLAX 2.9 cm M-MODE Aortic Root Diameter MM 3.3 cm LA Systolic Diameter MM 3.4 cm LA Ao Ratio MM 1.0 AV Cusp Separation MM 2.2 cm DOPPLER AV Peak Velocity 127.5 cm/s AV Peak Gradient 6.5 mmHg LVOT Peak Velocity 75.8 cm/s LVOT Peak Gradient 2.3 mmHg MV Area PHT 4.7 cm??? Mitral E Point Velocity 51.9 cm/s Mitral A Point Velocity 86.7 cm/s Mitral E to A Ratio 0.6 MV Deceleration Time 160.1 ms MV E' Velocity 5.0 cm/s Mitral E to MV E' Ratio 10.4 TR Peak Velocity 256.8 cm/s TR Peak Gradient 26.4 mmHg Right Ventricular Systolic Press 31.4 mmHg FINDINGS Left Ventricle Moderately increased left ventricular wall thickness. Normal left ventricular systolic function with no obvious regional wall motion abnormalities. Left ventricular ejection fraction is estimated at 55 %. Right Ventricle Normal right ventricular size and function. Right ventricular systolic pressure within normal limits. No Right heart strain noted. S' is10 cm/s Right Atrium Normal right atrial size. Left Atrium Normal left atrial size. Mitral Valve Structurally normal mitral valve. Trace to mild mitral regurgitation. Aortic Valve No aortic valve stenosis or regurgitation. Tricuspid Valve Mild tricuspid regurgitation. Pulmonic Valve Trace pulmonic regurgitation. Pericardium No pericardial effusion. Aorta Normal size aortic root and proximal ascending aorta. CONCLUSIONS Moderate increased left ventricular wall thickness Normal left ventricular ejection fraction 55% Normal right ventricular function without signs of right heart strain RVSP 31 Mild tricuspid regurgitation Trace to mild mitral regurgitation Previewed by: Dr. John Simental DO (Electronically Signed) Final Date: 18 September 2022 09:45
--- NOTE | 2022-09-18 10:28 | P.PN ---
Subjective Progress Note Date: 09/18/22 On today's evaluation of 09/18/2021, the patient is hemodynamically stable and she has no specific complaints. She remains on IV heparin for now. As mentioned earlier, the patient presented to us with shortness of breath. She was diagnosed having bilateral lower extremity DVT and pulmonary embolism and there was extensive pulmonary embolism on the right side with a distal right main pulmonary artery occlusion. Nevertheless, no significant strain pattern and there is no significant pulmonary hypertension echocardiogram. The patient's troponins were also negative and she remained hemodynamically stable. Currently she is on oxygen at 2 L. Meanwhile, there is a concern for malignancy. The CAT scan of the chest showed a pancreatic mass. This was further investigated by CAT scan of the abdomen and the CAT scan of the abdomen confirmed the findings. The pancreas showed a globally to 6.5 x 4.5 x 4 cm mass in the pancreatic body immediately cephalad to the upper right margin of the mass there is a cardiac 2 cm lymph node and the liver also showed multifocal rounded ill-defined densities consistent with metastases largest being 4 cm in size. There are other smaller lesions measuring 2 cm in size. Please refer to the detailed CAT scan of the abdomen regarding those findings. The patient has no specific complaints for now. No abdominal pain. She is tolerating her diet. The physical is at 7.1 with a hemoglobin of 11.7. Her tumor marker with CAD 19.9 came back elevated at 2230. PTT is being monitored most recent PTT is at 40.7. Objective - Vital Signs Vital signs: Vital Signs Temp 99 F 09/17/22 16:53 Pulse 90 09/18/22 07:00 Resp 18 09/18/22 07:00 BP 122/52 09/18/22 07:00 Pulse Ox 98 09/18/22 07:00 FiO2 Intake & Output 09/17/22 09/18/22 09/18/22 18:59 06:59 18:59 Intake Total 91.485 158.515 Balance 91.485 158.515 Weight 86.636 kg Intake: Intake, IV Titration 91.485 158.515 Amount Heparin Sod,Pork in 0.45% 91.485 158.515 NaCl 25,000 unit In 0.45 % NaCl 1 250ml.bag @ 18 UNITS/KG/HR 15.594 mls/hr IV .[id number] [facility] Rx#: [id number] - Exam GENERAL: Patient is well-developed and well-nourished. Patient is nontoxic and well- hydrated and is in patient is in mild distress and seems very fatigued, the breathing is nonlabored and the patient is currently on 2 L of oxygen by nasal cannula with a pulse ox of 98%. Hemodynamically stable. ENT: Neck is soft and supple. No significant lymphadenopathy is noted. Oropharynx is clear. Moist mucous membranes. Neck has full range of motion without eliciting any pain. EYES: The sclera were anicteric and conjunctiva were pink and moist. Extraocular movements were intact and pupils were equal round and reactive to light. Eyelids were unremarkable. PULMONARY: Unlabored respirations. Good breath sounds bilaterally. No audible rales rhonchi or wheezing was noted. CARDIOVASCULAR: There is a regular rate and rhythm without any murmurs gallops or rubs. ABDOMEN: Soft and nontender with normal bowel sounds. SKIN: Skin is clear with no lesions or rashes and otherwise unremarkable. NEUROLOGIC: Patient is alert and oriented x3. Cranial nerves II through XII are grossly int act. Motor and sensory are also intact. Normal speech, volume and content. Symmetrical smile. MUSCULOSKELETAL: Normal extremities with adequate strength and full range of motion. There is some increased edema lower oximetry is bilaterally. LYMPHATICS: No significant lymphadenopathy is noted PSYCHIATRIC: Normal psychiatric evaluation. - Labs CBC & Chem 7: 09/18/22 06:51 09/18/22 06:51 Labs: Abnormal Lab Results - Last 24 Hours (Table) 09/17/22 09/17/22 09/17/22 Range/Units 09:16 10:49 12:47 APTT (22.0-30.0) sec Glucose (74-99) mg/dL Plasma Lactic Acid Alexi 2.2 H* (0.7-2.0) mmol/L Calcium (8.4-10.2) mg/dL CA 19-9 Antigen 2230.0 H (0.0-34.9) U/mL Urine Appearance Turbid H (Clear) Urine Protein 2+ H (Negative) Urine Bilirubin 1+ H (Negative) Ur Leukocyte Esterase Large H (Negative) Urine WBC 163 H (0-5) /hpf Ur Squamous Epith Cells 43 H (0-4) /hpf Amorphous Sediment Rare H (None) /hpf Urine Bacteria Moderate H (None) /hpf Hyaline Casts 25 H (0-2) /lpf Urine Mucus Many H (None) /hpf 09/17/22 09/17/22 09/18/22 Range/Units 16:11 22:25 06:51 APTT 69.6 H 49.5 H 40.7 H (22.0-30.0) sec Glucose (74-99) mg/dL Plasma Lactic Acid Alexi (0.7-2.0) mmol/L Calcium (8.4-10.2) mg/dL CA 19-9 Antigen (0.0-34.9) U/mL Urine Appearance (Clear) Urine Protein (Negative) Urine Bilirubin (Negative) Ur Leukocyte Esterase (Negative) Urine WBC (0-5) /hpf Ur Squamous Epith Cells (0-4) /hpf Amorphous Sediment (None) /hpf Urine Bacteria (None) /hpf Hyaline Casts (0-2) /lpf Urine Mucus (None) /hpf 09/18/22 Range/Units 06:51 APTT (22.0-30.0) sec Glucose 108 H (74-99) mg/dL Plasma Lactic Acid Alexi (0.7-2.0) mmol/L Calcium 8.1 L (8.4-10.2) mg/dL CA 19-9 Antigen (0.0-34.9) U/mL Urine Appearance (Clear) Urine Protein (Negative) Urine Bilirubin (Negative) Ur Leukocyte Esterase (Negative) Urine WBC (0-5) /hpf Ur Squamous Epith Cells (0-4) /hpf Amorphous Sediment (None) /hpf Urine Bacteria (None) /hpf Hyaline Casts (0-2) /lpf Urine Mucus (None) /hpf Microbiology - Last 24 Hours (Table) 09/17/22 10:49 Urine Culture - Preliminary Urine,Voided Assessment and Plan Plan: Acute bilateral pulmonary embolism, with extensive clot at the origin of the right main pulmonary artery extending into the right middle lobe and the right l ower lobe in addition to filling defects on the left. The patient also has bilateral lower extremity DVT. This is a provoked event probably related to underlying malignancy and the presentation is highly suspicious for metastatic pancreatic cancer Bilateral lower extremity DVTs Pancreatic mass with peripancreatic lymphadenopathy and hypodense hepatic lesions Abdominal pain secondary to above Generalized weakness Mild lactic acidosis, improving Hypertension Hyperlipidemia Plan Continue IV heparin FNA of the liver lesion for tissue diagnosis by interventional radiology Oncology consult No evidence of any hemodynamic instability or RV strain pattern. Positive artery pressures are not elevated and the patient has no troponin elevation Continue IV heparin CAT scan of the abdomen and pelvis with special attention to a pancreatic mass was noted and the Results were reviewed We'll continue to follow
[2022-09-18] MEDS: LISINOPRIL-HCTZ 10-12.5 MG 1 EACH TAB PO SCH (12:56)
[2022-09-18] MEDS: FAMOTIDINE 20 MG TAB PO SCH (12:56)
[2022-09-18] MEDS: MAGNESIUM OXIDE 400 MG TAB PO SCH (12:56)
--- NOTE | 2022-09-18 13:07 | P.GSCN ---
History of Present Illness Consult date: 09/18/22 Reason for Consult: Bilateral pulmonary embolism, bilateral DVT Requesting physician: Santi Pedraza History of present illness: This is a pleasant 72-year-old female who presented to the emergency department with complaints of shortness of breath especially on exertion. Patient also states she's had some increased weakness and fatigue. She has a past medical history of GERD, hyperlipidemia, and hypertension. On presentation patient had elevated d-dimer and underwent a CT angiogram of the chest that showed bilateral pulmonary embolism. Vascular surgery was consulted for the above. Patient had further workup showing bilateral lower extremity DVTs as well. Also noted on CTA was pancreatic mass, multiple hypodense liver lesions as well as the right upper lobe pulmonary nodular density. She states her breathing has become easier since admission. She was started on heparin drip. She is on 2 L of nasa l cannula with an oxygen saturation at 98-99%. She does have some shortness of breath while talking and continues to have shortness of breath with getting up. Family is at the bedside and state that they have noticed that she's been a little more fatigued and easily winded over the last couple months duration. 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 Last colonoscopy she states was in 2017 significant for diverticulosis. Imaging CT angiogram chest: Bilateral pulmonary embolisms involving right main pulmonary artery extending into the right middle lobe and lower lobe segmental and segmental pulmonary arteries with pulmonary emboli in the lingular and left lower segmental pulmonary arteries. No CT evidence for right heart strain at t his time. Patchy peripheral groundglass wedge-shaped airspace opacities within the right lower lobe favored to represent pulmonary infarcts. Partially visualized pancreatic mass measuring up to 4.4 cm with additional enlarged peripancreatic lymph nodes and multiple hypodense liver lesions. Findings are concerning for pancreatic cancer with metastasis to the liver. Dedicated CT abdomen and pelvis pancreatic mass protocol is recommended Echocardiogram: Moderate increased left ventricular wall thickness, normal left ventricular ejection fraction 55% normal right ventricular function without signs of right heart strain R RV SP 31, mild tricuspid regurgitation, trace to mild mitral regurgitation Lower extremity venous duplex: On exam positive for bilateral lower extremity DVT. On the right lower pole is detected in the deep venous system is noncompressible from the calf up into the popliteal veins. On the left DVT extends from lower femoral vein down into the mid popliteal vein. Small amount of central color flow is demonstrated but the vessels are noncompressible. Review of Systems A 14 point review systems was completed all pertinent positives and negatives as stated in the HPI. Past Medical History Past Medical History: GERD/Reflux, Hyperlipidemia, Hypertension History of Any Multi-Drug Resistant Organisms: None Reported Past Surgical History: Section, Hysterectomy, Joint Replacement, Orthopedic Surgery Past Psychological History: No Psychological Hx Reported Smoking Status: Never smoker Past Alcohol Use History: None Reported Past Drug Use History: None Reported Medications and Allergies Home Medications Medication Instructions Recorded Confirmed Type Atorvastatin [Lipitor] 80 mg PO DIRECTED 01/23/16 09/17/22 History Famotidine [Pepcid] 20 mg PO BID 09/17/22 09/17/22 History Lisinopril-Hctz 10-12.5 mg 1 tab PO DAILY 09/17/22 09/17/22 History [Zestoretic 10-12.5] Magnesium Oxide [Mag-Ox] 400 mg PO DAILY 09/17/22 09/17/22 History Allergies Allergy/AdvReac Type Severity Reaction Status Date / Time No Known Allergies Allergy Verified 09/17/22 11:39 Surgical - Exam Vital Signs Temp Pulse Resp BP Pulse Ox 97.4 F L 122 H 18 127/82 98 09/17/22 08:51 09/17/22 08:51 09/17/22 08:51 09/17/22 08:51 09/17/22 08:51 General appearance: The patient is alert, oriented, appears in no acute distress. HET: Head is normocephalic and atraumatic. Pupils are equal and reactive. Neck: Supple without lymphadenopathy. Trachea midline. Heart: Regular. Lungs: Equal expansion, normal respiratory effort. Abdomen: Soft, nontender, nondistended. Extremities: Normal skin color and turgor. No cyanosis, rash, ulceration, clubbing, or edema. Radial and pedal pulses are 2/4 bilaterally. Neurological: No focal deficits. Strength and sensation are grossly intact. Results - Labs 09/18/22 06:51 09/18/22 06:51 Abnormal Lab Results - Last 24 Hours (Table) 09/17/22 09/17/22 09/17/22 Range/Units 09:16 09:16 09:16 WBC 12.7 H (3.8-10.6) k/uL Neutrophils # 10.2 H (1.3-7.7) k/uL APTT (22.0-30.0) sec D-Dimer >34.10 H (<0.60) mg/L FEU Sodium 135 L (137-145) mmol/L Potassium 3.2 L (3.5-5.1) mmol/L Glucose 184 H (74-99) mg/dL Plasma Lactic Acid Alexi (0.7-2.0) mmol/L Calcium (8.4-10.2) mg/dL Total Bilirubin 1.6 H (0.2-1.3) mg/dL AST 44 H (14-36) U/L ALT 35 H (4-34) U/L Alkaline Phosphatase 306 H (38-126) U/L CA 19-9 Antigen (0.0-34.9) U/mL Urine Appearance (Clear) Urine Protein (Negative) Urine Bilirubin (Negative) Ur Leukocyte Esterase (Negative) Urine WBC (0-5) /hpf Ur Squamous Epith Cells (0-4) /hpf Amorphous Sediment (None) /hpf Urine Bacteria (None) /hpf Hyaline Casts (0-2) /lpf Urine Mucus (None) /hpf 09/17/22 09/17/22 09/17/22 Range/Units 09:16 09:16 10:49 WBC (3.8-10.6) k/uL Neutrophils # (1.3-7.7) k/uL APTT (22.0-30.0) sec D-Dimer (<0.60) mg/L FEU Sodium (137-145) mmol/L Potassium (3.5-5.1) mmol/L Glucose (74-99) mg/dL Plasma Lactic Acid Alexi 4.8 H* (0.7-2.0) mmol/L Calcium (8.4-10.2) mg/dL Total Bilirubin (0.2-1.3) mg/dL AST (14-36) U/L ALT (4-34) U/L Alkaline Phosphatase (38-126) U/L CA 19-9 Antigen 2230.0 H (0.0-34.9) U/mL Urine Appearance Turbid H (Clear) Urine Protein 2+ H (Negative) Urine Bilirubin 1+ H (Negative) Ur Leukocyte Esterase Large H (Negative) Urine WBC 163 H (0-5) /hpf Ur Squamous Epith Cells 43 H (0-4) /hpf Amorphous Sediment Rare H (None) /hpf Urine Bacteria Moderate H (None) /hpf Hyaline Casts 25 H (0-2) /lpf Urine Mucus Many H (None) /hpf 09/17/22 09/17/22 09/17/22 Range/Units 12:47 16:11 22:25 WBC (3.8-10.6) k/uL Neutrophils # (1.3-7.7) k/uL APTT 69.6 H 49.5 H (22.0-30.0) sec D-Dimer (<0.60) mg/L FEU Sodium (137-145) mmol/L Potassium (3.5-5.1) mmol/L Glucose (74-99) mg/dL Plasma Lactic Acid Alexi 2.2 H* (0.7-2.0) mmol/L Calcium (8.4-10.2) mg/dL Total Bilirubin (0.2-1.3) mg/dL AST (14-36) U/L ALT (4-34) U/L Alkaline Phosphatase (38-126) U/L CA 19-9 Antigen (0.0-34.9) U/mL Urine Appearance (Clear) Urine Protein (Negative) Urine Bilirubin (Negative) Ur Leukocyte Esterase (Negative) Urine WBC (0-5) /hpf Ur Squamous Epith Cells (0-4) /hpf Amorphous Sediment (None) /hpf Urine Bacteria (None) /hpf Hyaline Casts (0-2) /lpf Urine Mucus (None) /hpf 09/18/22 Range/Units 06:51 WBC (3.8-10.6) k/uL Neutrophils # (1.3-7.7) k/uL APTT (22.0-30.0) sec D-Dimer (<0.60) mg/L FEU Sodium (137-145) mmol/L Potassium (3.5-5.1) mmol/L Glucose 108 H (74-99) mg/dL Plasma Lactic Acid Alexi (0.7-2.0) mmol/L Calcium 8.1 L (8.4-10.2) mg/dL Total Bilirubin (0.2-1.3) mg/dL AST (14-36) U/L ALT (4-34) U/L Alkaline Phosphatase (38-126) U/L CA 19-9 Antigen (0.0-34.9) U/mL Urine Appearance (Clear) Urine Protein (Negative) Urine Bilirubin (Negative) Ur Leukocyte Esterase (Negative) Urine WBC (0-5) /hpf Ur Squamous Epith Cells (0-4) /hpf Amorphous Sediment (None) /hpf Urine Bacteria (None) /hpf Hyaline Casts (0-2) /lpf Urine Mucus (None) /hpf Microbiology - Last 24 Hours (Table) 09/17/22 10:49 Urine Culture - Preliminary Urine,Voided Diabetes panel 09/17/22 09/18/22 Range/Units 09:16 06:51 Sodium 135 L 137 (137-145) mmol/L Potassium 3.2 L 3.5 (3.5-5.1) mmol/L Chloride 99 105 (98-107) mmol/L Carbon Dioxide 25 27 (22-30) mmol/L BUN 11 10 (7-17) mg/dL Creatinine 0.96 0.68 (0.52-1.04) mg/dL Glucose 184 H 108 H (74-99) mg/dL Calcium 8.8 8.1 L (8.4-10.2) mg/dL AST 44 H (14-36) U/L ALT 35 H (4-34) U/L Alkaline Phosphatase 306 H (38-126) U/L Total Protein 6.9 (6.3-8.2) g/dL Albumin 3.7 (3.5-5.0) g/dL Thyroid panel 09/17/22 Range/Units 09:16 TSH 3.560 (0.465-4.680) mIU/L Calcium panel 09/17/22 09/18/22 Range/Units 09:16 06:51 Calcium 8.8 8.1 L (8.4-10.2) mg/dL Albumin 3.7 (3.5-5.0) g/dL Pituitary panel 09/17/22 09/18/22 Range/Units 09:16 06:51 Sodium 135 L 137 (137-145) mmol/L Potassium 3.2 L 3.5 (3.5-5.1) mmol/L Chloride 99 105 (98-107) mmol/L Carbon Dioxide 25 27 (22-30) mmol/L BUN 11 10 (7-17) mg/dL Creatinine 0.96 0.68 (0.52-1.04) mg/dL Glucose 184 H 108 H (74-99) mg/dL Calcium 8.8 8.1 L (8.4-10.2) mg/dL TSH 3.560 (0.465-4.680) mIU/L Adrenal panel 09/17/22 09/18/22 Range/Units 09:16 06:51 Sodium 135 L 137 (137-145) mmol/L Potassium 3.2 L 3.5 (3.5-5.1) mmol/L Chloride 99 105 (98-107) mmol/L Carbon Dioxide 25 27 (22-30) mmol/L BUN 11 10 (7-17) mg/dL Creatinine 0.96 0.68 (0.52-1.04) mg/dL Glucose 184 H 108 H (74-99) mg/dL Calcium 8.8 8.1 L (8.4-10.2) mg/dL Total Bilirubin 1.6 H (0.2-1.3) mg/dL AST 44 H (14-36) U/L ALT 35 H (4-34) U/L Alkaline Phosphatase 306 H (38-126) U/L Total Protein 6.9 (6.3-8.2) g/dL Albumin 3.7 (3.5-5.0) g/dL Assessment and Plan Assessment: 1. Bilateral pulmonary embolism without right heart strain 2. Bilateral lower extremity DVTs 3. Shortness of breath 4. Pancreatic mass 5. Liver lesions 6. Pulmonary nodule 7. History of hypertension and hyperlipidemia Plan: 1. Continue symptomatic and supportive care 2. Continue heparin drip for now, defer anticoagulation recommendations to hematology/oncology. 3. Incentive spirometer to bedside 4. No indication for any vascular surgical intervention Thank you for this consultation, we will be on standby if further needed please do not hesitate to contact us. The impression and plan of care has been dictated as directed. Dr. Peter I performed a history and examination of this patient, discussed the same with the dictator. I agree with the dictator's note ,documented as a scribe. Any additional findings or plans will be noted.
--- NOTE | 2022-09-18 13:27 | US ---
EXAMINATION TYPE: US abdomen limited DATE OF EXAM: 09/18/2022 COMPARISON: NONE CLINICAL HISTORY: anterior abdomen. omental lesion seen on CT Soft tissue scan of paraumbilical region showed soft tissue mass 3.4cm posterior to skin line IMPRESSION: Soft tissue mass corresponds to the intra-abdominal omental mass.
--- NOTE | 2022-09-18 13:27 | P.CRDCN ---
History of Present Illness Consult date: 09/18/22 Reason for Consult (text): shortness of breath, possible CHF History of present illness: History of present illness: This is a 72 year old female patient with no previous cardiac history. She denies having stress test or cardiac catheterization done in the past. We have been asked to see the patient due to shortness of breath and possible heart failure. Patient presented to the hospital due to fatigue, tiredness, increased exertional dyspnea and lower extremity pain. Patient was found to have multiple PE, bilateral DVTs, pancreatic mass, liver lesions and pulmonary nodule. She has a past medical history of hypertension hyperlipidemia. Patient is seen today in the emergency center as she is waiting for a bed on the cardiac stepd own unit. Patient denies history of diabetes and is a nonsmoker. She states her brother had history of cardiomyopathy and COPD the second brother had history of myocardial infarction at age 40. EKG reveals sinus tachycardia Echocardiogram 09/17/2022 revealed moderate increased left ventricular wall thickness. Normal left ventricular ejection fraction 55%. RVSP 31. Normal right ventricular function without right heart strain. Mild tricuspid regurgitation. Trace to mild mitral regurgitation Laboratory studies WBC 12.7, hemoglobin 14.1. D-dimer greater than 34. Potassium 3.5, BUN 10 and creatinine 0.68. Total bilirubin 1.6, AST 44, ALT 35, alkaline phosphatase 306. Troponin negative. ProBNP 318. CA 199 2230. TSH 3.56. Influenza A, influenza B, RSV, Covid 19 not detected. Chest x-ray reveals patchy new area of vague density along the lateral margin of the right lower lung field. Could represent early developing infiltrate favored over neoplasm CTA of the chest revealed bilateral pulmonary embolisms involving the right main pulmonary artery extending to the right middle lobe and lower lobe segmental and subsegmental pulmonary arteries with pulmonary emboli in the lingular and left lower lobe subsegmental pulmonary arteries. No evidence of right heart strain. Patchy peripheral groundglass wedge-shaped airspace opacities within the right lower lobe favored to represent pulmonary infarcts. Partially visualized pancreatic mass 4.4 cm with enlarged lymph nodes and multiple hypodense liver lesions. Nonspecific right upper lobe pulmonary nodule density measuring 5 mm. Home cardiac medications: Zestoretic 1 tablet daily, Lipitor 80 mg on hold by PCP Review Of Systems: Constitutional: No fever, no chills. No weakness, reports fatigue no lethargy. EENT: No headache. No dizziness. Lungs: no shortness of breath, cough, no sputum production. No wheezing. Cardiovascular: No chest pain, reports lower extremity discomfort. No palpitations. No paroxysmal nocturnal dyspnea. No orthopnea. No lightheadedness or dizziness. No syncopal episodes. Abdominal: No abdominal pain. No nausea, vomiting. No diarrhea. No constipation. No bloody or tarry stools. No loss of appetite. Genitourinary: No dysuria.. No urinary retention. Musculoskeletal: No myalgias. No muscle weakness, no gait dysfunction, no frequent falls. No back pain. No neck pain. Integumentary: No wounds, no lesions. No rash or pruritus. No unusual bruising. Neurologic: No aphasia. No facial droop. No change in mentation. No head injury. No headache. No paralysis. No paresthesia. Psychiatric: No depression. No anxiety. Endocrine: No abnormal blood sugars. Physical examination: Gen: This is a 72-year-old female. Patient is resting in the ER stretch and appears to be comfortable and in no acute distress. VS: reviewed HEENT: Head is atraumatic, normocephalic. Pupils equal, round. Sclerae is anicteric. NECK: Supple. No JVD. No lymphadenopathy. No thyromegaly. LUNGS: Clear to auscultation. No wheezes or rhonchi. No intercostal retractions. HEART: Regular rate and rhythm. No murmur. ABDOMEN: Soft. Bowel sounds are present. No masses. No tenderness. EXTREMITIES: No pedal edema. No calf tenderness. NEUROLOGICAL: Patient is awake, alert and oriented x3. Cranial nerves 2 through 12 are grossly intact. Assessment: Acute extensive bilateral pulmonary embolism with bilateral lower extremity DVT Pancreatic mass with. Pancreatic lymphadenopathy and hypodense hepatic lesions CHF ruled out Shortness of breath secondary to pulmonary embolism Hypertension Hyperlipidemia Plan: Resume patient's blood pressure medication Continue to hold Lipitor secondary to elevated liver function test Pulmonary medicine following for PE Oncology following for pancreatic mass, hepatic lesions Cardiology we'll sign off and follow on an as-needed basis. Please reconsult if any new concerns develop. Thank you kindly for this consultation. Nurse practitioner note has been reviewed, I agree with documented findings and plan of care. Patient was seen and examined. Past Medical History Past Medical History: GERD/Reflux, Hyperlipidemia, Hypertension History of Any Multi-Drug Resistant Organisms: None Reported Past Surgical History: Section, Hysterectomy, Joint Replacement, Orthopedic Surgery Past Psychological History: No Psychological Hx Reported Smoking Status: Never smoker Past Alcohol Use History: None Reported Past Drug Use History: None Reported Medications and Allergies Home Medications Medication Instructions Recorded Confirmed Type Atorvastatin [Lipitor] 80 mg PO DIRECTED 01/23/16 09/17/22 History Famotidine [Pepcid] 20 mg PO BID 09/17/22 09/17/22 History Lisinopril-Hctz 10-12.5 mg 1 tab PO DAILY 09/17/22 09/17/22 History [Zestoretic 10-12.5] Magnesium Oxide [Mag-Ox] 400 mg PO DAILY 09/17/22 09/17/22 History Allergies Allergy/AdvReac Type Severity Reaction Status Date / Time No Known Allergies Allergy Verified 09/17/22 11:39 Physical Exam Vitals: Vital Signs Temp Pulse Resp BP Pulse Ox 09/18/22 03:48 73 25 H 127/67 98 09/18/22 01:23 78 22 111/56 98 09/18/22 00:30 78 25 H 119/52 97 09/18/22 00:20 80 25 H 119/52 97 09/18/22 00:10 80 27 H 119/52 98 09/18/22 00:00 78 24 120/51 09/17/22 23:50 80 26 H 120/51 97 09/17/22 23:40 103 H 15 120/51 09/17/22 23:31 120/51 09/17/22 23:20 81 26 H 120/51 98 09/17/22 23:10 83 27 H 117/46 97 09/17/22 23:00 83 21 125/46 98 09/17/22 22:50 80 24 125/46 100 09/17/22 22:40 82 25 H 120/51 99 09/17/22 22:30 82 26 H 109/51 100 09/17/22 22:20 78 22 109/51 99 09/17/22 22:10 82 27 H 121/44 98 09/17/22 22:00 84 24 113/44 100 09/17/22 21:58 87 20 113/44 98 09/17/22 20:20 90 16 109/48 98 09/17/22 16:53 99 F 83 18 145/72 99 09/17/22 13:00 82 18 142/70 98 09/17/22 10:49 96 99 09/17/22 10:15 102 H 20 99 09/17/22 09:25 20 09/17/22 08:51 97.4 F L 122 H 18 127/82 98 Intake and Output 09/17/22 09/18/22 09/18/22 22:59 06:59 14:59 Intake Total 91.485 158.515 Balance 91.485 158.515 Intake: Intake, IV Titration 91.485 158.515 Amount Heparin Sod,Pork in 0.45% 91.485 158.515 NaCl 25,000 unit In 0.45 % NaCl 1 250ml.bag @ 18 UNITS/KG/HR 15.594 mls/hr IV .Q16H2M [facility] Rx#: [id number] Results 09/18/22 06:51 09/18/22 06:51 Cardiac Enzymes 09/17/22 09/17/22 Range/Units 09:16 09:16 AST 44 H (14-36) U/L Troponin I <0.012 (0.000-0.034) ng/mL Coagulation 09/17/22 09/17/22 09/17/22 Range/Units 09:16 16:11 22:25 PT 11.5 (9.0-12.0) sec APTT 22.1 69.6 H 49.5 H (22.0-30.0) sec CBC 09/17/22 Range/Units 09:16 WBC 12.7 H (3.8-10.6) k/uL RBC 4.67 (3.80-5.40) m/uL Hgb 14.1 (11.4-16.0) gm/dL Hct 42.7 (34.0-46.0) % Plt Count 252 (150-450) k/uL Comprehensive Metabolic Panel 09/17/22 Range/Units 09:16 Sodium 135 L (137-145) mmol/L Potassium 3.2 L (3.5-5.1) mmol/L Chloride 99 (98-107) mmol/L Carbon Dioxide 25 (22-30) mmol/L BUN 11 (7-17) mg/dL Creatinine 0.96 (0.52-1.04) mg/dL Glucose 184 H (74-99) mg/dL Calcium 8.8 (8.4-10.2) mg/dL AST 44 H (14-36) U/L ALT 35 H (4-34) U/L Alkaline Phosphatase 306 H (38-126) U/L Total Protein 6.9 (6.3-8.2) g/dL Albumin 3.7 (3.5-5.0) g/dL Current Medications Generic Name Dose Route Start Last Admin Trade Name Freq PRN Reason Stop Dose Admin Famotidine 20 mg 09/18/22 09:00 Famotidine 20 Mg Tab PO DAILY [facility] Lisinopril/HCTZ 1 each 09/18/22 09:00 Lisinopril-Hctz 10-12.5 Mg 1 Each Tab PO DAILY [facility] Heparin Sodium/Sodium Chloride 250 mls @ 15.594 mls/hr 09/17/22 10:30 09/18/22 05:37 25,000 unit/ Sodium Chloride IV 16 units/kg/hr .Q16H2M [facility] 13.862 mls/hr Administration Protocol 18 UNITS/KG/HR Iopamidol 30 ml 09/17/22 13:25 Iopamidol Contrast (Oral Use) Vial PO 09/18/22 13:[address] Scan Magnesium Oxide 400 mg 09/18/22 09:00 Magnesium Oxide 400 Mg Tab PO DAILY [facility] Intake and Output 09/17/22 09/18/22 09/18/22 22:59 06:59 14:59 Intake Total 91.485 158.515 Balance 91.485 158.515 Intake: Intake, IV Titration 91.485 158.515 Amount Heparin Sod,Pork in 0.45% 91.485 158.515 NaCl 25,000 unit In 0.45 % NaCl 1 250ml.bag @ 18 UNITS/KG/HR 15.594 mls/hr IV .Q16H2M [facility] Rx#: [id number] 09/17/22 09:16 09/17/22 09:16
--- NOTE | 2022-09-18 14:41 | P.CONS ---
History of Present Illness - Reason for Consult Consult date: 09/18/22 pancreatic mass Requesting physician: Santi Pedraza - Chief Complaint Sob, fatigue, weakness - History of Present Illness Mrs. Coleman is a pleasant 72-year-old female who is presenting to the ER at the recommendation of her PCP for c/o persistent and progressive SOB, fatigue, unintentional weight loss, loss of appetite and constipation. Symptoms started out rather mild around Thanksgiving, progressing over the last 2 months. In the last several weeks she sought care with her PCP. Her initial symptoms were most consistent with constipation and she was treated for the same. She had bowel movements and her symptoms were better. Unfortunately, they return a week later. She followed up with PCP, this time labs, chest x-ray ordered with 1 week follow-up appointment to review. At follow-up appointment, PCP noticed that the patient could not breathe, she was sent to the hospital, concerns for PE. On admission, CTA was positive for bilateral PE, baseline Doppler of the bilateral lower extremities, both legs were positive for DVT. Incidentally, on CTA, a 4.4 cm pancreatic mass was noted, associated lymphadenopathy and liver lesions. This was followed by a CT AP, that confirmed the pancreatic mass, liver lesions, there was also omental caking noted. Echo showed an LVEF of 55%, CT of the brain without contrast was negative. Pt reports left leg pain last week, resolved on its own. Also reports anorexia, "stomach hurts". She is currently having shortness of breath at rest. She denies any difficulty swallowing, nausea, vomiting, chest pain, abdominal distention, cramping, acute changes in bladder habits. Hgb 11.7, Ca-19.9 elevated at 2230. Denies any bleeding on heparin drip at this time. Review of Systems 10 point review of systems is negative except as stated in HPI Past Medical History Past Medical History: GERD/Reflux, Hyperlipidemia, Hypertension History of Any Multi-Drug Resistant Organisms: None Reported Past Surgical History: Section, Hysterectomy, Joint Replacement, Orthopedic Surgery Past Psychological History: No Psychological Hx Reported Smoking Status: Never smoker Past Alcohol Use History: None Reported Past Drug Use History: None Reported - Past Family History Mother Family Medical History: No Reported History Medications and Allergies Home Medications Medication Instructions Recorded Confirmed Type Atorvastatin [Lipitor] 80 mg PO DIRECTED 01/23/16 09/17/22 History Famotidine [Pepcid] 20 mg PO BID 09/17/22 09/17/22 History Lisinopril-Hctz 10-12.5 mg 1 tab PO DAILY 09/17/22 09/17/22 History [Zestoretic 10-12.5] Magnesium Oxide [Mag-Ox] 400 mg PO DAILY 09/17/22 09/17/22 History Allergies Allergy/AdvReac Type Severity Reaction Status Date / Time No Known Allergies Allergy Verified 09/17/22 11:39 Physical Exam Vitals: Vital Signs Temp Pulse Resp BP Pulse Ox 09/18/22 07:00 90 18 122/52 98 09/18/22 06:00 69 21 124/68 95 09/18/22 05:00 70 21 123/56 95 09/18/22 04:00 75 24 127/67 97 09/18/22 03:48 73 25 H 127/67 98 09/18/22 01:23 78 22 111/56 98 09/18/22 00:30 78 25 H 119/52 97 09/18/22 00:20 80 25 H 119/52 97 09/18/22 00:10 80 27 H 119/52 98 09/18/22 00:00 78 24 120/51 09/17/22 23:50 80 26 H 120/51 97 09/17/22 23:40 103 H 15 120/51 09/17/22 23:31 120/51 09/17/22 23:20 81 26 H 120/51 98 09/17/22 23:10 83 27 H 117/46 97 09/17/22 23:00 83 21 125/46 98 09/17/22 22:50 80 24 125/46 100 09/17/22 22:40 82 25 H 120/51 99 09/17/22 22:30 82 26 H 109/51 100 09/17/22 22:20 78 22 109/51 99 09/17/22 22:10 82 27 H 121/44 98 09/17/22 22:00 84 24 113/44 100 09/17/22 21:58 87 20 113/44 98 09/17/22 20:20 90 16 109/48 98 09/17/22 16:53 99 F 83 18 145/72 99 09/17/22 13:00 82 18 142/70 98 Intake and Output 09/17/22 09/18/22 09/18/22 22:59 06:59 14:59 Intake Total 91.485 158.515 Balance 91.485 158.515 Intake: Intake, IV Titration 91.485 158.515 Amount Heparin Sod,Pork in 0.45% 91.485 158.515 NaCl 25,000 unit In 0.45 % NaCl 1 250ml.bag @ 18 UNITS/KG/HR 15.594 mls/hr IV .Q16H2M [facility] Rx#: [id number] - Constitutional General appearance: cooperative, mild distress, obese - EENT Eyes: anicteric sclerae, EOMI ENT: hearing grossly normal, normal oropharynx - Neck Neck: no lymphadenopathy - Respiratory Respiratory: bilateral: diminished (Throughout, restricted inspiration) - Cardiovascular Rhythm: regular Heart sounds: normal: S1, S2 Abnormal Heart Sounds: no systolic murmur, no diastolic murmur, no rub, no S3 Gallop, no S4 Gallop, no click, no other leg Peripheral Edema: bilateral: None - Gastrointestinal Epigastric fullness noted General gastrointestinal: no absent bowel sounds, no decreased bowel sounds, no distended, no hepatomegaly, no hyperactive bowel sounds, normal bowel sounds, no organomegaly, no rigid, no scaphoid, soft, no splenomegaly, no tenderness, no umbilical hernia, no ventral hernia - Integumentary Integumentary: normal - Neurologic Neurologic: CNII-XII intact - Musculoskeletal Musculoskeletal: generalized weakness, strength equal bilaterally - Psychiatric Psychiatric: A&O x's 3, appropriate affect, intact judgment & insight Results CBC & Chem 7: 09/18/22 06:51 09/18/22 06:51 Labs: Abnormal Lab Results - Last 24 Hours (Table) 09/17/22 09/17/22 09/17/22 Range/Units 09:16 10:49 12:47 APTT (22.0-30.0) sec Glucose (74-99) mg/dL Plasma Lactic Acid Alexi 2.2 H* (0.7-2.0) mmol/L Calcium (8.4-10.2) mg/dL CA 19-9 Antigen 2230.0 H (0.0-34.9) U/mL Urine Appearance Turbid H (Clear) Urine Protein 2+ H (Negative) Urine Bilirubin 1+ H (Negative) Ur Leukocyte Esterase Large H (Negative) Urine WBC 163 H (0-5) /hpf Ur Squamous Epith Cells 43 H (0-4) /hpf Amorphous Sediment Rare H (None) /hpf Urine Bacteria Moderate H (None) /hpf Hyaline Casts 25 H (0-2) /lpf Urine Mucus Many H (None) /hpf 09/17/22 09/17/22 09/18/22 Range/Units 16:11 22:25 06:51 APTT 69.6 H 49.5 H 40.7 H (22.0-30.0) sec Glucose (74-99) mg/dL Plasma Lactic Acid Alexi (0.7-2.0) mmol/L Calcium (8.4-10.2) mg/dL CA 19-9 Antigen (0.0-34.9) U/mL Urine Appearance (Clear) Urine Protein (Negative) Urine Bilirubin (Negative) Ur Leukocyte Esterase (Negative) Urine WBC (0-5) /hpf Ur Squamous Epith Cells (0-4) /hpf Amorphous Sediment (None) /hpf Urine Bacteria (None) /hpf Hyaline Casts (0-2) /lpf Urine Mucus (None) /hpf 09/18/22 Range/Units 06:51 APTT (22.0-30.0) sec Glucose 108 H (74-99) mg/dL Plasma Lactic Acid Alexi (0.7-2.0) mmol/L Calcium 8.1 L (8.4-10.2) mg/dL CA 19-9 Antigen (0.0-34.9) U/mL Urine Appearance (Clear) Urine Protein (Negative) Urine Bilirubin (Negative) Ur Leukocyte Esterase (Negative) Urine WBC (0-5) /hpf Ur Squamous Epith Cells (0-4) /hpf Amorphous Sediment (None) /hpf Urine Bacteria (None) /hpf Hyaline Casts (0-2) /lpf Urine Mucus (None) /hpf Microbiology - Last 24 Hours (Table) 09/17/22 10:49 Urine Culture - Preliminary Urine,Voided CT scan - abdomen: report reviewed CT scan - chest: report reviewed CT Scan - head: report reviewed CT scan - pelvis: report reviewed Venous US: report reviewed Assessment and Plan (1) Pancreatic mass Current Visit: Yes Status: Acute Code(s): K86.89 - OTHER SPECIFIED DISEASES OF PANCREAS SNOMED Code(s): 657404359 (2) DVT (deep venous thrombosis) Current Visit: Yes Status: Acute Code(s): I82.409 - ACUTE EMBOLISM AND THOMBOS UNSP DEEP VN UNSP LOWER EXTREMITY SNOMED Code(s): 051842293 (3) Pulmonary embolism Current Visit: Yes Status: Acute Priority: High Code(s): I26.99 - OTHER PULMONARY EMBOLISM WITHOUT ACUTE COR PULMONALE SNOMED Code(s): 51542176 (4) Liver lesion Current Visit: Yes Status: Acute Priority: High Code(s): K76.9 - LIVER DISEASE, UNSPECIFIED SNOMED Code(s): 994242960 Plan: Pancreatic mass, lymphadenopathy, liver lesions, omental caking -Discussed with patient, her sister and daughter at the bedside imaging highly concerning for malignancy. Patient is also reporting constitutional symptoms. Recommendation is for biopsy to identify primary malignancy. Patient and family are agreeable for the same. -Orders placed for Interventional Radiology to do biopsy. Discussed with radiology nurse. Plan is to do biopsy on Wednesday. Because of patient's respiratory symptoms 2/2 PE, Pulmonary not comfortable holding heparin drip so soon. Agree with their assessment. -All patient and family questions were answered to their satisfaction with the information available at this time. Bilateral PE, bilateral lower extremity DVT -Very symptomatic, continues to have mildly labored respirations at rest -On heparin, continue heparin. Typically patients are kept on heparin drip for 72 hours if they're symptomatic. Currently, Pulmonary is managing. Agree with their plan -Once symptoms have improved, consider transitioning to DOAC -No provoking factors noted. Most likely cause, underlying malignancy
[2022-09-18 14:43] VITALS: BMI 33.8
[2022-09-19] MEDS: MAGNESIUM OXIDE 400 MG TAB PO SCH (09:13)
[2022-09-19] MEDS: LISINOPRIL-HCTZ 10-12.5 MG 1 EACH TAB PO SCH (09:13)
[2022-09-19] MEDS: FAMOTIDINE 20 MG TAB PO SCH (09:13)
[2022-09-19 11:26] LABS: Basophils # (A) 0.1 k/uL (0-0.2); Basophils % (A) 1 %; Eosinophils # (A) 0.3 k/uL (0-0.7); Eosinophils % (A) 3 %; HCT 38.2 % (34.0-46.0); HGB 12.4 gm/dL (11.4-16.0); Hypochromasia Slight; Lymphocytes # (A) 0.8 k/uL (1.0-4.8); Lymphocytes % (A) 8 %; MCH 29.8 pg (25.0-35.0); MCHC 32.4 g/dL (31.0-37.0); Monocytes # (A) 0.5 k/uL (0-1.0); Monocytes % (A) 5 %; Neutrophils # (A) 8.6 k/uL (1.3-7.7); Neutrophils % (A) 84 %; Platelet Count 216 k/uL (150-450); RBC 4.16 m/uL (3.80-5.40); RDW 12.2 % (11.5-15.5); WBC 10.2 k/uL (3.8-10.6)
[2022-09-19 11:53] LABS: ALT 30 U/L (4-34); AST 34 U/L (14-36); African American GFR (CKD) >90 (>60 ml/min/1.73 sqM); Albumin 3.1 g/dL (3.5-5.0); Alkaline Phosphatase 254 U/L (38-126); Anion Gap 6 mmol/L; Blood Urea Nitrogen 8 mg/dL (7-17); Calcium 8.2 mg/dL (8.4-10.2); Carbon Dioxide 27 mmol/L (22-30); Chloride 104 mmol/L (98-107); Glucose 153 mg/dL (74-99); Magnesium 1.7 mg/dL (1.6-2.3); Non-African American GFR(CKD) 89 (>60 ml/min/1.73 sqM); Potassium 3.5 mmol/L (3.5-5.1); Sodium 137 mmol/L (137-145); Total Bilirubin 0.8 mg/dL (0.2-1.3)
[2022-09-19] MEDS: HEPARIN SOD,PORK IN 0.45% NACL 25,000 UNIT in 0.45% NACL 1 250ML.BAG IV SCH (12:00)
--- NOTE | 2022-09-19 12:06 | P.PN ---
Subjective Progress Note Date: 09/19/22 On today's evaluation of 09/18/2021, the patient is hemodynamically stable and she has no specific complaints. She remains on IV heparin for now. As mentioned earlier, the patient presented to us with shortness of breath. She was diagnosed having bilateral lower extremity DVT and pulmonary embolism and there was extensive pulmonary embolism on the right side with a distal right main pulmonary artery occlusion. Nevertheless, no significant strain pattern and there is no significant pulmonary hypertension echocardiogram. The patient's troponins were also negative and she remained hemodynamically stable. Currently she is on oxygen at 2 L. Meanwhile, there is a concern for malignancy. The CAT scan of the chest showed a pancreatic mass. This was further investigated by CAT scan of the abdomen and the CAT scan of the abdomen confirmed the findings. The pancreas showed a globally to 6.5 x 4.5 x 4 cm mass in the pancreatic body immediately cephalad to the upper right margin of the mass there is a cardiac 2 cm lymph node and the liver also showed multifocal rounded ill-defined densities consistent with metastases largest being 4 cm in size. There are other smaller lesions measuring 2 cm in size. Please refer to the detailed CAT scan of the abdomen regarding those findings. The patient has no specific complaints for now. No abdominal pain. She is tolerating her diet. The physical is at 7.1 with a hemoglobin of 11.7. Her tumor marker with CAD 19.9 came back elevated at 2230. PTT is being monitored most recent PTT is at 40.7. 09/19/2021, the patient remains on IV heparin. Hemodynamically stable. No evidence of any bleeding. We are looking into a fine-needle aspirate by interventional radiology by Wednesday. PTT today's 47. Normal electrolytes. Normal renal function. Hemoglobin stable at 12.4 and a white cell count is 10.2 with a platelet count of 216. Ultrasound of the abdomen was also done and it showed a mental mass/soft tissue mass. Objective - Vital Signs Vital signs: Vital Signs Temp 97 F L 09/19/22 09:28 Pulse 94 09/19/22 09:28 Resp 17 09/19/22 09:28 BP 103/51 09/19/22 09:28 Pulse Ox 96 09/19/22 09:28 FiO2 Intake & Output 09/18/22 09/19/22 09/19/22 18:59 06:59 18:59 Intake Total 73.931 176.069 236 Output Total 151 Balance 73.931 25.069 236 Weight 86.636 kg Intake: Intake, IV Titration 73.931 176.069 Amount Heparin Sod,Pork in 0.45% 73.931 176.069 NaCl 25,000 unit In 0.45 % NaCl 1 250ml.bag @ 18 UNITS/KG/HR 15.594 mls/hr IV .Q16H2M [facility] Rx#: [id number] Oral 236 Output: Urine 150 Urine/Stool Mix 1 Other: Voiding Method Bedside Commode Bedside Commode # Voids 3 1 - Exam GENERAL: Patient is well-developed and well-nourished. Patient is nontoxic and well- hydrated and is in patient is in mild distress and seems very fatigued, the breathing is nonlabored and the patient is currently on 2 L of oxygen by nasal cannula with a pulse ox of 98%. Hemodynamically stable. ENT: Neck is soft and supple. No significant lymphadenopathy is noted. Oropharynx is clear. Moist mucous membranes. Neck has full range of motion without eliciting any pain. EYES: The sclera were anicteric and conjunctiva were pink and moist. Extraocular movements were intact and pupils were equal round and reactive to light. Eyelids were unremarkable. PULMONARY: Unlabored respirations. Good breath sounds bilaterally. No audible rales rhonchi or wheezing was noted. CARDIOVASCULAR: There is a regular rate and rhythm without any murmurs gallops or rubs. ABDOMEN: Soft and nontender with normal bowel sounds. SKIN: Skin is clear with no lesions or rashes and otherwise unremarkable. NEUROLOGIC: Patient is alert and oriented x3. Cranial nerves II through XII are grossly int act. Motor and sensory are also intact. Normal speech, volume and content. Symmetrical smile. MUSCULOSKELETAL: Normal extremities with adequate strength and full range of motion. There is some increased edema lower oximetry is bilaterally. LYMPHATICS: No significant lymphadenopathy is noted PSYCHIATRIC: Normal psychiatric evaluation. - Labs CBC & Chem 7: 09/19/22 10:43 09/19/22 10:43 Labs: Abnormal Lab Results - Last 24 Hours (Table) 09/18/22 09/19/22 09/19/22 Range/Units 13:59 10:43 10:43 Neutrophils # 8.6 H (1.3-7.7) k/uL Lymphocytes # 0.8 L (1.0-4.8) k/uL APTT 48.8 H 47.1 H (22.0-30.0) sec Glucose (74-99) mg/dL Calcium (8.4-10.2) mg/dL Alkaline Phosphatase (38-126) U/L Total Protein (6.3-8.2) g/dL Albumin (3.5-5.0) g/dL 09/19/22 Range/Units 10:43 Neutrophils # (1.3-7.7) k/uL Lymphocytes # (1.0-4.8) k/uL APTT (22.0-30.0) sec Glucose 153 H (74-99) mg/dL Calcium 8.2 L (8.4-10.2) mg/dL Alkaline Phosphatase 254 H (38-126) U/L Total Protein 6.0 L (6.3-8.2) g/dL Albumin 3.1 L (3.5-5.0) g/dL Microbiology - Last 24 Hours (Table) 09/17/22 10:49 Urine Culture - Preliminary Urine,Voided Gram Neg Bacilli 09/17/22 10:20 Blood Culture - Preliminary Blood No Growth after 24 hours 09/17/22 10:15 Blood Culture - Preliminary Blood No Growth after 24 hours Assessment and Plan Plan: Acute bilateral pulmonary embolism, with extensive clot at the origin of the right main pulmonary artery extending into the right middle lobe and the right lower lobe in addition to filling defects on the left. The patient also has bilateral lower extremity DVT. This is a provoked event probably related to underlying malignancy and the presentation is highly suspicious for metastatic pancreatic cancer Bilateral lower extremity DVTs Pancreatic mass with peripancreatic lymphadenopathy and hypodense hepatic lesi ons Abdominal pain secondary to above Generalized weakness Mild lactic acidosis, improving Hypertension Hyperlipidemia Plan clinically unchanged and the patient is stable for now Continue IV heparin FNA of the liver lesion for tissue diagnosis by interventional radiology, hopefully by Wednesday Oncology consult No evidence of any hemodynamic instability or RV strain pattern. Positive artery pressures are not elevated and the patient has no troponin elevation Continue IV heparin CAT scan of the abdomen and pelvis with special attention to a pancreatic mass was noted and the Results were reviewed We'll continue to follow
[2022-09-20] MEDS: HEPARIN SOD,PORK IN 0.45% NACL 25,000 UNIT in 0.45% NACL 1 250ML.BAG IV SCH ×2 (06:37→19:46)
[2022-09-20] MEDS: LISINOPRIL-HCTZ 10-12.5 MG 1 EACH TAB PO SCH (08:05)
[2022-09-20] MEDS: FAMOTIDINE 20 MG TAB PO SCH (08:05)
[2022-09-20] MEDS: MAGNESIUM OXIDE 400 MG TAB PO SCH (08:05)
--- NOTE | 2022-09-20 10:06 | P.PN ---
Subjective Progress Note Date: 09/20/22 On today's evaluation of 09/18/2021, the patient is hemodynamically stable and she has no specific complaints. She remains on IV heparin for now. As mentioned earlier, the patient presented to us with shortness of breath. She was diagnosed having bilateral lower extremity DVT and pulmonary embolism and there was extensive pulmonary embolism on the right side with a distal right main pulmonary artery occlusion. Nevertheless, no significant strain pattern and there is no significant pulmonary hypertension echocardiogram. The patient's troponins were also negative and she remained hemodynamically stable. Currently she is on oxygen at 2 L. Meanwhile, there is a concern for malignancy. The CAT scan of the chest showed a pancreatic mass. This was further investigated by CAT scan of the abdomen and the CAT scan of the abdomen confirmed the findings. The pancreas showed a globally to 6.5 x 4.5 x 4 cm mass in the pancreatic body immediately cephalad to the upper right margin of the mass there is a cardiac 2 cm lymph node and the liver also showed multifocal rounded ill-defined densities consistent with metastases largest being 4 cm in size. There are other smaller lesions measuring 2 cm in size. Please refer to the detailed CAT scan of the abdomen regarding those findings. The patient has no specific complaints for now. No abdominal pain. She is tolerating her diet. The physical is at 7.1 with a hemoglobin of 11.7. Her tumor marker with CAD 19.9 came back elevated at 2230. PTT is being monitored most recent PTT is at 40.7. 09/19/2021, the patient remains on IV heparin. Hemodynamically stable. No evidence of any bleeding. We are looking into a fine-needle aspirate by interventional radiology by Wednesday. PTT today's 47. Normal electrolytes. Normal renal function. Hemoglobin stable at 12.4 and a white cell count is 10.2 with a platelet count of 216. Ultrasound of the abdomen was also done and it showed a mental mass/soft tissue mass. 09/20/2021, the patient remains on IV heparin. No complaints. Doing well. The plan is to do today fine-needle aspirate of a liver mass tomorrow. Meanwhile, she remains hemodynamically stable. No signs of any bleeding. She is in good spirits. She is on room air oxygen. No pleurisy. No hemoptysis. No other issues for now. Objective - Vital Signs Vital signs: Vital Signs Temp 97.9 F 09/20/22 08:00 Pulse 86 09/20/22 08:00 Resp 18 09/20/22 08:00 BP 127/79 09/20/22 08:00 Pulse Ox 98 09/20/22 08:56 FiO2 Intake & Output 09/19/22 09/20/22 09/20/22 18:59 06:59 18:59 Intake Total 354 250 358 Balance 354 250 358 Intake: Intake, IV Titration 250 Amount Heparin Sod,Pork in 0.45% 250 NaCl 25,000 unit In 0.45 % NaCl 1 250ml.bag @ 18 UNITS/KG/HR 15.594 mls/hr IV .Q16H2M [facility] Rx#: [id number] Oral 354 358 Other: Voiding Method Bedside Commode Bedside Commode Bedside Commode # Voids 3 1 - Exam GENERAL: Patient is well-developed and well-nourished. Patient is nontoxic and well- hydrated and is in patient is in mild distress and seems very fatigued, the breathing is nonlabored and the patient is currently on 2 L of oxygen by nasal cannula with a pulse ox of 98%. Hemodynamically stable. ENT: Neck is soft and supple. No significant lymphadenopathy is noted. Oropharynx is clear. Moist mucous membranes. Neck has full range of motion without eliciting any pain. EYES: The sclera were anicteric and conjunctiva were pink and moist. Extraocular movements were intact and pupils were equal round and reactive to light. Eyelids were unremarkable. PULMONARY: Unlabored respirations. Good breath sounds bilaterally. No audible rales rhonchi or wheezing was noted. CARDIOVASCULAR: There is a regular rate and rhythm without any murmurs gallops or rubs. ABDOMEN: Soft and nontender with normal bowel sounds. SKIN: Skin is clear with no lesions or rashes and otherwise unremarkable. NEUROLOGIC: Patient is alert and oriented x3. Cranial nerves II through XII are grossly intact. Motor and sensory are also intact. Normal speech, volume and content. Symmetrical smile. MUSCULOSKELETAL: Normal extremities with adequate strength and full range of motion. There is some increased edema lower oximetry is bilaterally. LYMPHATICS: No significant lymphadenopathy is noted PSYCHIATRIC: Normal psychiatric evaluation. - Labs CBC & Chem 7: 09/19/22 10:43 09/19/22 10:43 Labs: Abnormal Lab Results - Last 24 Hours (Table) 09/19/22 09/19/22 09/19/22 Range/Units 10:43 10:43 10:43 Neutrophils # 8.6 H (1.3-7.7) k/uL Lymphocytes # 0.8 L (1.0-4.8) k/uL APTT 47.1 H (22.0-30.0) sec Glucose 153 H (74-99) mg/dL Calcium 8.2 L (8.4-10.2) mg/dL Alkaline Phosphatase 254 H (38-126) U/L Total Protein 6.0 L (6.3-8.2) g/dL Albumin 3.1 L (3.5-5.0) g/dL Microbiology - Last 24 Hours (Table) 09/17/22 10:49 Urine Culture - Final Urine,Voided Klebsiella pneumoniae 09/17/22 10:20 Blood Culture - Preliminary Blood No Growth after 48 hours 09/17/22 10:15 Blood Culture - Preliminary Blood No Growth after 48 hours Assessment and Plan Plan: Acute bilateral pulmonary embolism, with extensive clot at the origin of the right main pulmonary artery extending into the right middle lobe and the right lower lobe in addition to filling defects on the left. The patient also has bilateral lower extremity DVT. This is a provoked event probably related to underlying malignancy and the presentation is highly suspicious for metastatic pancreatic cancer Bilateral lower extremity DVTs Pancreatic mass with peripancreatic lymphadenopathy and hypodense hepatic lesions Abdominal pain secondary to above Generalized weakness Mild lactic acidosis, improving Hypertension Hyperlipidemia Plan Continue same treatment Clinically improved and there is no shortness of breath or chest pain at this point in time Continue IV heparin FNA of the liver lesion for tissue diagnosis by interventional radiology, hopefully by Wednesday Oncology consult No evidence of any hemodynamic instability or RV strain pattern. Positive artery pressures are not elevated and the patient has no troponin elevation Continue IV heparin CAT scan of the abdomen and pelvis with special attention to a pancreatic mass was noted and the Results were reviewed We'll continue to follow
[2022-09-20 10:43] LABS: HCT 34.9 % (34.0-46.0); HGB 11.5 gm/dL (11.4-16.0); MCH 29.9 pg (25.0-35.0); MCV 90.6 fL (80.0-100.0); Mean Platelet Volume 8.8; Platelet Count 256 k/uL (150-450); RBC 3.85 m/uL (3.80-5.40); RDW 12.7 % (11.5-15.5); WBC 9.6 k/uL (3.8-10.6)
[2022-09-20 11:15] LABS: African American GFR (CKD) >90 (>60 ml/min/1.73 sqM); Anion Gap 6 mmol/L; Blood Urea Nitrogen 8 mg/dL (7-17); Calcium 8.1 mg/dL (8.4-10.2); Carbon Dioxide 27 mmol/L (22-30); Chloride 102 mmol/L (98-107); Glucose 200 mg/dL (74-99); Non-African American GFR(CKD) >90 (>60 ml/min/1.73 sqM); Potassium 3.3 mmol/L (3.5-5.1); Sodium 135 mmol/L (137-145)
--- NOTE | 2022-09-20 12:56 | P.PN ---
Subjective Progress Note Date: 09/20/22 Principal diagnosis: BIlateral PEs, Suspected Metastatic Cancer Spoke to patient family Angelica, planning on biopsy of liver met in am. COntiunes on heparin drip at this time, will convert to PO AC post biopsy. Objective - Vital Signs Vital signs: Vital Signs Temp 97.6 F 09/20/22 11:28 Pulse 74 09/20/22 11:28 Resp 18 09/20/22 11:28 BP 111/53 09/20/22 11:28 Pulse Ox 98 09/20/22 11:28 FiO2 Intake & Output 09/19/22 09/20/22 09/20/22 18:59 06:59 18:59 Intake Total 354 250 358 Balance 354 250 358 Intake: Intake, IV Titration 250 Amount Heparin Sod,Pork in 0.45% 250 NaCl 25,000 unit In 0.45 % NaCl 1 250ml.bag @ 18 UNITS/KG/HR 15.594 mls/hr IV .Q16H2M [facility] Rx#: [id number] Oral 354 358 Other: Voiding Method Bedside Commode Bedside Commode Bedside Commode # Voids 3 1 - Constitutional General appearance: Present: cooperative, no acute distress - Respiratory Respiratory: bilateral: diminished - Cardiovascular Rhythm: regularly irregular - Labs CBC & Chem 7: 09/20/22 10:17 09/20/22 10:17 Labs: Abnormal Lab Results - Last 24 Hours (Table) 09/20/22 09/20/22 Range/Units 10:17 10:17 APTT 43.7 H (22.0-30.0) sec Sodium 135 L (137-145) mmol/L Potassium 3.3 L (3.5-5.1) mmol/L Glucose 200 H (74-99) mg/dL Calcium 8.1 L (8.4-10.2) mg/dL Microbiology - Last 24 Hours (Table) 09/17/22 10:49 Urine Culture - Final Urine,Voided Klebsiella pneumoniae 09/17/22 10:20 Blood Culture - Preliminary Blood No Growth after 48 hours 09/17/22 10:15 Blood Culture - Preliminary Blood No Growth after 48 hours Assessment and Plan Plan: Assessment and Plan (1) Pancreatic mass Current Visit: Yes Status: Acute Code(s): K86.89 - OTHER SPECIFIED DISEASES OF PANCREAS SNOMED Code(s): 874140715 (2) DVT (deep venous thrombosis) Current Visit: Yes Status: Acute Code(s): I82.409 - ACUTE EMBOLISM AND THOMBOS UNSP DEEP VN UNSP LOWER EXTREMITY SNOMED Code(s): 793845701 (3) Pulmonary embolism Current Visit: Yes Status: Acute Priority: High Code(s): I26.99 - OTHER PULMONARY EMBOLISM WITHOUT ACUTE COR PULMONALE SNOMED Code(s): 09520689 (4) Liver lesion Current Visit: Yes Status: Acute Priority: High Code(s): K76.9 - LIVER DISEASE, UNSPECIFIED SNOMED Code(s): 274660738 Plan: Pancreatic mass, lymphadenopathy, liver lesions, omental caking -Discussed with patient, and patient advocate Angelica - Plan is liver biopsy on Wednesday. Heparin drip to continue until biopsy then will convert to PO AC prior to discharge, plan to follow up with oncology in approx 7-10 days post biopsy Bilateral PE, bilateral lower extremity DVT As above
[2022-09-20] MEDS ORDERED: Potassium Replacement Protocol 1 EACH MISC MISCELLANE PRN (14:19)
[2022-09-20] MEDS: POTASSIUM CHLORIDE ER 20 MEQ TAB.ER PO SCH ×2 (14:53→16:18)
[2022-09-20] MEDS ORDERED: ONDANSETRON 4 MG/2 ML VIAL IVP PRN (15:49)
[2022-09-20] MEDS ORDERED: POTASSIUM CHLORIDE ER 20 MEQ TAB.ER PO STA (22:13)
--- NOTE | 2022-09-20 22:14 | P.PN ---
Subjective Progress Note Date: 09/18/22 Patient is a 72-year-old female with past medical history of hypertension, hyperlipidemia presents to ER with complaints of not feeling well and shortness of breath for the past few weeks. Patient is also having loss of weight and worsening shortness of breath and came to ER and found to have right-sided pulmonary embolism. Patient was also noted to have pancreatic mass. 09/18/2022 Patient is currently lying in bed. Breathing status improving. Requiring 2 L oxygen via nasal cannula. No complaints of chest pain. No nausea vomiting abdominal pain or diarrhea. Bilateral lower extremity duplex scan is positive for DVT. CT of the abdomen pelvis showed ill-defined and mildly lobulated 6.5 cm x 4.5 x 4 cm pancreatic body mass. Findings consistent with pancreatic primary with multifocal liver metastasis and omental caking. Oncology and pulmonary is on board. IR guided liver biopsy was ordered. Patient remains on heparin drip. Laboratory data showed WBC 7.1 hemoglobin 11.7 platelets 12.6 Sodium 137 potassium 3.5 chloride 105 bicarb is 27 BUN 10 and creatinine 0.66 and calcium 8.1. Current medications reviewed. Objective - Vital Signs Vital signs: Vital Signs Temp 97.5 F L 09/18/22 12:00 Pulse 103 H 09/18/22 12:00 Resp 22 09/18/22 13:52 BP 112/73 09/18/22 12:00 Pulse Ox 95 09/18/22 12:00 FiO2 Intake & Output 09/17/22 09/18/22 09/18/22 18:59 06:59 18:59 Intake Total 91.485 158.515 73.931 Balance 91.485 158.515 73.931 Weight 86.636 kg 86.636 kg Intake: Intake, IV Titration 91.485 158.515 73.931 Amount Heparin Sod,Pork in 0.45% 91.485 158.515 73.931 NaCl 25,000 unit In 0.45 % NaCl 1 250ml.bag @ 18 UNITS/KG/HR 15.594 mls/hr IV .Q16H2M [facility] Rx#: [id number] - Exam PHYSICAL EXAMINATION: Patient is lying in the bed comfortably, no acute distress, awake alert and oriented.. HEENT: Normocephalic. Neck is supple. Pupils reactive. Nostrils clear. Oral cavity is moist. Neck reveals no JVD, carotid bruits, or thyromegaly. CHEST EXAMINATION: Trachea is central. Symmetrical expansion. Lung cantu clear to auscultation and percussion. CARDIAC: Normal S1, S2 with no gallops. No murmurs ABDOMEN: Soft. Bowel sounds present. Nontender. No organomegaly. No abdominal bruits. Extremities: reveal no edema. No clubbing or cyanosis Neurologically awake, alert, oriented x3 with well-coordinated movements. No focal deficits noted Skin: No rash or skin lesions. Psychiatric: Coperative. Nonsuicidal, Musculoskeletal: No joint swelling or deformity. Normal range of motion. - Labs CBC & Chem 7: 09/20/22 10:17 09/20/22 10:17 Labs: Abnormal Lab Results - Last 24 Hours (Table) 09/17/22 09/17/22 09/17/22 Range/Units 09:16 12:47 16:11 APTT 69.6 H (22.0-30.0) sec Glucose (74-99) mg/dL Plasma Lactic Acid Alexi 2.2 H* (0.7-2.0) mmol/L Calcium (8.4-10.2) mg/dL CA 19-9 Antigen 2230.0 H (0.0-34.9) U/mL 09/17/22 09/18/22 09/18/22 Range/Units 22:25 06:51 06:51 APTT 49.5 H 40.7 H (22.0-30.0) sec Glucose 108 H (74-99) mg/dL Plasma Lactic Acid Alexi (0.7-2.0) mmol/L Calcium 8.1 L (8.4-10.2) mg/dL CA 19-9 Antigen (0.0-34.9) U/mL Microbiology - Last 24 Hours (Table) 09/17/22 10:20 Blood Culture - Preliminary Blood No Growth after 24 hours 09/17/22 10:15 Blood Culture - Preliminary Blood No Growth after 24 hours 09/17/22 10:49 Urine Culture - Preliminary Urine,Voided Assessment and Plan Assessment: Acute bilateral PE with extensive clot at the origin of the right main pulmonary artery extending into the right middle lobe and right lower lobe in addition to filling defects on the left. Bilateral lower extremity DVT likely due to underlying malignancy Possible pancreatic mass with malignancy with metastasis Possible acute urinary tract infection follow-up urine culture report Hypertension Hyperlipidemia GERD DVT prophylaxis patient is already on heparin drip Plan: Patient is on oxygen supplementation and heparin drip. Serially abdomen pelvis with pancreatic mass protocol was done. CT head was done. Oncology is on board. Liver biopsy by interventional radiology. Continue to follow closely. Symptomatic management. Prognosis guarded with mental medical problems and comorbid conditions. Time with Patient: Greater than 30
--- NOTE | 2022-09-21 00:56 | P.PN ---
Subjective Progress Note Date: 09/19/22 Patient is a 72-year-old female with past medical history of hypertension, hyperlipidemia presents to ER with complaints of not feeling well and shortness of breath for the past few weeks. Patient is also having loss of weight and worsening shortness of breath and came to ER and found to have right-sided pulmonary embolism. Patient was also noted to have pancreatic mass. 09/18/2022 Patient is currently lying in bed. Breathing status improving. Requiring 2 L oxygen via nasal cannula. No complaints of chest pain. No nausea vomiting abdominal pain or diarrhea. Bilateral lower extremity duplex scan is positive for DVT. CT of the abdomen pelvis showed ill-defined and mildly lobulated 6.5 cm x 4.5 x 4 cm pancreatic body mass. Findings consistent with pancreatic primary with multifocal liver metastasis and omental caking. Oncology and pulmonary is on board. IR guided liver biopsy was ordered. Patient remains on heparin drip. Laboratory data showed WBC 7.1 hemoglobin 11.7 platelets 12.6 Sodium 137 potassium 3.5 chloride 105 bicarb is 27 BUN 10 and creatinine 0.66 and calcium 8.1. 09/19/2022 Patient is currently resting in bed. Awake alert and oriented. Denied any complaints of chest pain. Shortness of breath is better. Remains on IV heparin. Scheduled for IR guided biopsy likely on Wednesday. Ultrasound abdomen showed soft tissue mass corresponds to the intra-abdominal omental mass. Laboratory data showed WBC 10.2 hemoglobin 12.4 and platelets 216 sodium 137 potassium 3.5 chloride 104 bicarb is 27 BUN 18 creatinine 0.66 and albumin 3.1. Discussed with family and updated care plan.. Pulmonary is on board. Current medications reviewed. Objective - Vital Signs Vital signs: Vital Signs Temp 98.4 F 09/19/22 19:38 Pulse 96 09/19/22 19:38 Resp 22 09/19/22 19:39 BP 110/56 09/19/22 19:38 Pulse Ox 99 09/19/22 19:38 FiO2 Intake & Output 09/19/22 09/19/22 09/20/22 06:59 18:59 06:59 Intake Total 176.069 354 Output Total 151 Balance 25.069 354 Intake: Intake, IV Titration 176.069 Amount Heparin Sod,Pork in 0.45% 176.069 NaCl 25,000 unit In 0.45 % NaCl 1 250ml.bag @ 18 UNITS/KG/HR 15.594 mls/hr IV .Q16H2M [facility] Rx#: [id number] Oral 354 Output: Urine 150 Urine/Stool Mix 1 Other: Voiding Method Bedside Commode Bedside Commode Bedside Commode # Voids 1 3 - Exam PHYSICAL EXAMINATION: Patient is lying in the bed comfortably, no acute distress, awake alert and oriented.. HEENT: Normocephalic. Neck is supple. Pupils reactive. Nostrils clear. Oral cavity is moist. Neck reveals no JVD, carotid bruits, or thyromegaly. CHEST EXAMINATION: Trachea is central. Symmetrical expansion. Lung cantu clear to auscultation and percussion. CARDIAC: Normal S1, S2 with no gallops. No murmurs ABDOMEN: Soft. Bowel sounds present. Nontender. No organomegaly. No abdominal bruits. Extremities: reveal no edema. No clubbing or cyanosis Neurologically awake, alert, oriented x3 with well-coordinated movements. No focal deficits noted Skin: No rash or skin lesions. Psychiatric: Coperative. Nonsuicidal, Musculoskeletal: No joint swelling or deformity. Normal range of motion. - Labs CBC & Chem 7: 09/20/22 10:17 09/20/22 10:17 Labs: Abnormal Lab Results - Last 24 Hours (Table) 09/19/22 09/19/22 09/19/22 Range/Units 10:43 10:43 10:43 Neutrophils # 8.6 H (1.3-7.7) k/uL Lymphocytes # 0.8 L (1.0-4.8) k/uL APTT 47.1 H (22.0-30.0) sec Glucose 153 H (74-99) mg/dL Calcium 8.2 L (8.4-10.2) mg/dL Alkaline Phosphatase 254 H (38-126) U/L Total Protein 6.0 L (6.3-8.2) g/dL Albumin 3.1 L (3.5-5.0) g/dL Microbiology - Last 24 Hours (Table) 09/17/22 10:49 Urine Culture - Final Urine,Voided Klebsiella pneumoniae 09/17/22 10:20 Blood Culture - Preliminary Blood No Growth after 48 hours 09/17/22 10:15 Blood Culture - Preliminary Blood No Growth after 48 hours Assessment and Plan Assessment: Acute bilateral PE with extensive clot at the origin of the right main pulmonary artery extending into the right middle lobe and right lower lobe in addition to filling defects on the left. Bilateral lower extremity DVT likely due to underlying malignancy Possible pancreatic mass with malignancy with metastasis Possible acute urinary tract infection follow-up urine culture report Hypertension Hyperlipidemia GERD DVT prophylaxis patient is already on heparin drip Plan: Patient is on oxygen supplementation and heparin drip. CT abdomen pelvis with pancreatic mass protocol was done. CT head was done. Oncology is on board. Liver biopsy by interventional radiology. Continue to follow closely. Symptomatic management. Prognosis guarded with mental medical problems and comorbid conditions. Time with Patient: Greater than 30
[2022-09-21] MEDS ORDERED: MAGNESIUM SULFATE-D5W PMX 1 GM in DEXTROSE/WATER 1 100ML.BAG IVPB ONE (00:57)
--- NOTE | 2022-09-21 00:58 | P.PN ---
Subjective Progress Note Date: 09/20/22 Patient is a 72-year-old female with past medical history of hypertension, hyperlipidemia presents to ER with complaints of not feeling well and shortness of breath for the past few weeks. Patient is also having loss of weight and worsening shortness of breath and came to ER and found to have right-sided pulmonary embolism. Patient was also noted to have pancreatic mass. 09/18/2022 Patient is currently lying in bed. Breathing status improving. Requiring 2 L oxygen via nasal cannula. No complaints of chest pain. No nausea vomiting abdominal pain or diarrhea. Bilateral lower extremity duplex scan is positive for DVT. CT of the abdomen pelvis showed ill-defined and mildly lobulated 6.5 cm x 4.5 x 4 cm pancreatic body mass. Findings consistent with pancreatic primary with multifocal liver metastasis and omental caking. Oncology and pulmonary is on board. IR guided liver biopsy was ordered. Patient remains on heparin drip. Laboratory data showed WBC 7.1 hemoglobin 11.7 platelets 12.6 Sodium 137 potassium 3.5 chloride 105 bicarb is 27 BUN 10 and creatinine 0.66 and calcium 8.1. 09/19/2022 Patient is currently resting in bed. Awake alert and oriented. Denied any complaints of chest pain. Shortness of breath is better. Remains on IV heparin. Scheduled for IR guided biopsy likely on Wednesday. Ultrasound abdomen showed soft tissue mass corresponds to the intra-abdominal omental mass. Laboratory data showed WBC 10.2 hemoglobin 12.4 and platelets 216 sodium 137 potassium 3.5 chloride 104 bicarb is 27 BUN 18 creatinine 0.66 and albumin 3.1. Discussed with family and updated care plan.. Pulmonary is on board. 09/20/2021 Patient is resting in bed. Awake alert and oriented. Shortness of breath is better. Oxygen titrated down to room air. Denies any pleuritic chest pain. Patient is scheduled for IR guided FNA biopsy of liver mass. No fever no chills. No complaints of nausea vomiting abdominal pain or diarrhea. Tolerating oral diet. Laboratory data showed sodium 135 potassium 3.3 chloride 102 bicarb is 27 BUN 18 creatinine 0.59 and blood sugar is 200. Magnesium 1.7. Current medications reviewed. Objective - Vital Signs Vital signs: Vital Signs Temp 98.2 F 09/20/22 19:32 Pulse 100 09/20/22 19:32 Resp 18 09/20/22 19:32 BP 110/53 09/20/22 19:32 Pulse Ox 97 09/20/22 19:32 FiO2 Intake & Output 09/20/22 09/20/22 09/21/22 06:59 18:59 06:59 Intake Total 250 598 205.061 Balance 250 598 205.061 Intake: Intake, IV Titration 250 205.061 Amount Heparin Sod,Pork in 0.45% 250 205.061 NaCl 25,000 unit In 0.45 % NaCl 1 250ml.bag @ 18 UNITS/KG/HR 15.594 mls/hr IV .Q16H2M [facility] Rx#: [id number] Oral 598 Other: Voiding Method Bedside Commode Bedside Commode Bedside Commode # Voids 1 1 1 - Exam PHYSICAL EXAMINATION: Patient is lying in the bed comfortably, no acute distress, awake alert and oriented.. HEENT: Normocephalic. Neck is supple. Pupils reactive. Nostrils clear. Oral cavity is moist. Neck reveals no JVD, carotid bruits, or thyromegaly. CHEST EXAMINATION: Trachea is central. Symmetrical expansion. Lung cantu clear to auscultation and percussion. CARDIAC: Normal S1, S2 with no gallops. No murmurs ABDOMEN: Soft. Bowel sounds present. Nontender. No organomegaly. No abdominal bruits. Extremities: reveal no edema. No clubbing or cyanosis Neurologically awake, alert, oriented x3 with well-coordinated movements. No focal deficits noted Skin: No rash or skin lesions. Psychiatric: Coperative. Nonsuicidal, Musculoskeletal: No joint swelling or deformity. Normal range of motion. - Labs CBC & Chem 7: 09/20/22 10:17 09/20/22 10:17 Labs: Abnormal Lab Results - Last 24 Hours (Table) 09/20/22 09/20/22 Range/Units 10:17 10:17 APTT 43.7 H (22.0-30.0) sec Sodium 135 L (137-145) mmol/L Potassium 3.3 L (3.5-5.1) mmol/L Glucose 200 H (74-99) mg/dL Calcium 8.1 L (8.4-10.2) mg/dL Microbiology - Last 24 Hours (Table) 09/17/22 10:20 Blood Culture - Preliminary Blood No Growth after 72 hours 09/17/22 10:15 Blood Culture - Preliminary Blood No Growth after 72 hours 09/17/22 10:49 Urine Culture - Final Urine,Voided Klebsiella pneumoniae Assessment and Plan Assessment: Acute bilateral PE with extensive clot at the origin of the right main pulmonary artery extending into the right middle lobe and right lower lobe in addition to filling defects on the left. Bilateral lower extremity DVT likely due to underlying malignancy Possible pancreatic mass with malignancy with metastasis Possible acute urinary tract infection follow-up urine culture report Hypertension Hyperlipidemia GERD DVT prophylaxis patient is already on heparin drip Plan: Patient is on oxygen supplementation and heparin drip. CT abdomen pelvis with pancreatic mass protocol was done. CT head was done. Oncology is on board. Liver biopsy by interventional radiology.Liver biopsy tomorrow. Continue to follow closely. Symptomatic management. Prognosis guarded with mental medical problems and comorbid conditions. Time with Patient: Greater than 30
[2022-09-21 08:02] LABS: African American GFR (CKD) >90 (>60 ml/min/1.73 sqM); Anion Gap 4 mmol/L; Blood Urea Nitrogen 9 mg/dL (7-17); Carbon Dioxide 30 mmol/L (22-30); Chloride 103 mmol/L (98-107); Glucose 108 mg/dL (74-99); Non-African American GFR(CKD) >90 (>60 ml/min/1.73 sqM); Potassium 3.4 mmol/L (3.5-5.1); Sodium 137 mmol/L (137-145)
[2022-09-21] MEDS: MAGNESIUM OXIDE 400 MG TAB PO SCH (08:11)
[2022-09-21] MEDS: FAMOTIDINE 20 MG TAB PO SCH (08:11)
[2022-09-21] MEDS: LISINOPRIL-HCTZ 10-12.5 MG 1 EACH TAB PO SCH (08:11)
--- NOTE | 2022-09-21 13:01 | P.PN ---
Subjective Progress Note Date: 09/21/22 On today's evaluation of 09/18/2021, the patient is hemodynamically stable and she has no specific complaints. She remains on IV heparin for now. As mentioned earlier, the patient presented to us with shortness of breath. She was diagnosed having bilateral lower extremity DVT and pulmonary embolism and there was extensive pulmonary embolism on the right side with a distal right main pulmonary artery occlusion. Nevertheless, no significant strain pattern and there is no significant pulmonary hypertension echocardiogram. The patient's troponins were also negative and she remained hemodynamically stable. Currently she is on oxygen at 2 L. Meanwhile, there is a concern for malignancy. The CAT scan of the chest showed a pancreatic mass. This was further investigated by CAT scan of the abdomen and the CAT scan of the abdomen confirmed the findings. The pancreas showed a globally to 6.5 x 4.5 x 4 cm mass in the pancreatic body immediately cephalad to the upper right margin of the mass there is a cardiac 2 cm lymph node and the liver also showed multifocal rounded ill-defined densities consistent with metastases largest being 4 cm in size. There are other smaller lesions measuring 2 cm in size. Please refer to the detailed CAT scan of the abdomen regarding those findings. The patient has no specific complaints for now. No abdominal pain. She is tolerating her diet. The physical is at 7.1 with a hemoglobin of 11.7. Her tumor marker with CAD 19.9 came back elevated at 2230. PTT is being monitored most recent PTT is at 40.7. 09/19/2021, the patient remains on IV heparin. Hemodynamically stable. No evidence of any bleeding. We are looking into a fine-needle aspirate by interventional radiology by Wednesday. PTT today's 47. Normal electrolytes. Normal renal function. Hemoglobin stable at 12.4 and a white cell count is 10.2 with a platelet count of 216. Ultrasound of the abdomen was also done and it showed a mental mass/soft tissue mass. 09/20/2021, the patient remains on IV heparin. No complaints. Doing well. The plan is to do today fine-needle aspirate of a liver mass tomorrow. Meanwhile, she remains hemodynamically stable. No signs of any bleeding. She is in good spirits. She is on room air oxygen. No pleurisy. No hemoptysis. No other issues for now. The patient is seen today 09/21/2021 in follow-up on the selective care unit. She is currently sitting up in a chair at the bedside. Awake and alert in no acute distress. She is maintaining good O2 saturations in the 90s on room air. She denies any chest pain or worsening shortness of breath. She remains on a heparin drip. The plan is to undergo biopsy of the omental today. Blood cultures revealed no growth. Urine culture positive for Klebsiella pneumoniae. Sodium 137. Potassium 3.4. BUN 9. Creatinine 0.58. She is currently on antibiotics in the form of ceftriaxone. Objective - Vital Signs Vital signs: Vital Signs Temp 97.3 F L 09/21/22 08:00 Pulse 93 09/21/22 12:18 Resp 16 09/21/22 12:18 BP 99/61 09/21/22 12:18 Pulse Ox 96 09/21/22 12:18 FiO2 Intake & Output 09/20/22 09/21/22 09/21/22 18:59 06:59 18:59 Intake Total 598 205.061 196.744 Balance 598 205.061 196.744 Intake: Intake, IV Titration 205.061 196.744 Amount Heparin Sod,Pork in 0.45% 205.061 196.744 NaCl 25,000 unit In 0.45 % NaCl 1 250ml.bag @ 18 UNITS/KG/HR 15.594 mls/hr IV .Q16H2M [facility] Rx#: [id number] Oral 598 Other: Voiding Method Bedside Commode Bedside Commode # Voids 1 3 1 - Exam GENERAL EXAM: Alert, very pleasant 72-year-old female, on room air, up in a chair at the bedside, comfortable in no apparent distress. HEAD: Normocephalic. EYES: Normal reaction of pupils, equal size. NOSE: Clear with pink turbinates. THROAT: No erythema or exudates. NECK: No masses, no JVD. CHEST: No chest wall deformity. LUNGS: Equal air entry with no crackles, wheeze, rhonchi or dullness. CVS: S1 and S2 normal with no audible murmur, regular rhythm. ABDOMEN: No hepatosplenomegaly, normal bowel sounds, no guarding or rigidity. SPINE: No scoliosis or deformity SKIN: No rashes CENTRAL NERVOUS SYSTEM: No focal deficits, tone is normal in all 4 extremities. EXTREMITIES: There is no peripheral edema. No clubbing, no cyanosis. Peripheral pulses are intact. - Labs CBC & Chem 7: 09/20/22 10:17 09/21/22 06:49 Labs: Abnormal Lab Results - Last 24 Hours (Table) 09/21/22 09/21/22 Range/Units 06:49 06:49 APTT 49.4 H (22.0-30.0) sec Potassium 3.4 L (3.5-5.1) mmol/L Glucose 108 H (74-99) mg/dL Calcium 8.0 L (8.4-10.2) mg/dL Microbiology - Last 24 Hours (Table) 09/17/22 10:20 Blood Culture - Preliminary Blood No Growth after 96 hours 09/17/22 10:15 Blood Culture - Preliminary Blood No Growth after 96 hours Assessment and Plan Assessment: Acute bilateral pulmonary embolism, with extensive clot at the origin of the right main pulmonary artery extending into the right middle lobe and the right lower lobe in addition to filling defects on the left. The patient also has bilateral lower extremity DVT. This is a provoked event probably related to underlying malignancy and the presentation is highly suspicious for metastatic pancreatic cancer. Undergoing biopsy of the omental today by interventional radiology Bilateral lower extremity DVTs Pancreatic mass with peripancreatic lymphadenopathy and hypodense hepatic lesions Abdominal pain secondary to above Generalized weakness Mild lactic acidosis, improving Hypertension Hyperlipidemia Plan: The patient was seen and evaluated Currently stable and on room air Plan is for biopsy of the omental today Currently on a heparin drip and will be transitioned to Eliquis We will continue to follow and make further recommendations based on her clinical status I have personally seen and examined the patient, performed the documentation and the assessment and plan as written. Number of minutes spent on the visit: 10.
--- NOTE | 2022-09-21 13:31 | US ---
ULTRASOUND GUIDED CORE BIOPSY PERITONEAL MASS: CLINICAL HISTORY: Peritoneal mass FINDINGS: The procedure was explained to the patient. The risks, complications, benefits and alternatives were discussed and any questions were answered. Informed consent was obtained. Patient was placed supin e on the ultrasound table and prepped and draped in the usual sterile fashion. Utilizing a 18 gauge needle, two passes were made into the peritoneal mass. Patient was stable throughout the procedure. Pathology is pending. All elements of maximal barrier technique were utilized. IMPRESSION: 1. Successful ultrasound guided for biopsy peritoneal mass.
--- NOTE | 2022-09-21 15:15 | P.PN ---
Subjective Progress Note Date: 09/21/22 Patient is a 72-year-old female with past medical history of hypertension, hyperlipidemia presents to ER with complaints of not feeling well and shortness of breath for the past few weeks. Patient is also having loss of weight and worsening shortness of breath and came to ER and found to have right-sided pulmonary embolism. Patient was also noted to have pancreatic mass. 09/18/2022 Patient is currently lying in bed. Breathing status improving. Requiring 2 L oxygen via nasal cannula. No complaints of chest pain. No nausea vomiting abdominal pain or diarrhea. Bilateral lower extremity duplex scan is positive for DVT. CT of the abdomen pelvis showed ill-defined and mildly lobulated 6.5 cm x 4.5 x 4 cm pancreatic body mass. Findings consistent with pancreatic primary with multifocal liver metastasis and omental caking. Oncology and pulmonary is on board. IR guided liver biopsy was ordered. Patient remains on heparin drip. Laboratory data showed WBC 7.1 hemoglobin 11.7 platelets 12.6 Sodium 137 potassium 3.5 chloride 105 bicarb is 27 BUN 10 and creatinine 0.66 and calcium 8.1. 09/19/2022 Patient is currently resting in bed. Awake alert and oriented. Denied any complaints of chest pain. Shortness of breath is better. Remains on IV heparin. Scheduled for IR guided biopsy likely on Wednesday. Ultrasound abdomen showed soft tissue mass corresponds to the intra-abdominal omental mass. Laboratory data showed WBC 10.2 hemoglobin 12.4 and platelets 216 sodium 137 potassium 3.5 chloride 104 bicarb is 27 BUN 18 creatinine 0.66 and albumin 3.1. Discussed with family and updated care plan.. Pulmonary is on board. 09/20/2021 Patient is resting in bed. Awake alert and oriented. Shortness of breath is better. Oxygen titrated down to room air. Denies any pleuritic chest pain. Patient is scheduled for IR guided FNA biopsy of liver mass. No fever no chills. No complaints of nausea vomiting abdominal pain or diarrhea. Tolerating oral diet. Laboratory data showed sodium 135 potassium 3.3 chloride 102 bicarb is 27 BUN 18 creatinine 0.59 and blood sugar is 200. Magnesium 1.7. 09/21/2022 Patient is seen and evaluated and follow-up currently sitting up on room air reporting her shortness of breath is improved. Patient is currently nothing by mouth and heparin infusion placed on hold as patient is to undergo liver biopsy with interventional radiology. Patient will be started on 10 mg of Eliquis this evening. Per nursing staff IR suggested possibly monitoring overnight as the biopsy was deep for any further complications. IV heparin will be discontinued and patient will start oral anticoagulant this evening and will monitor overnight with possible discharge in 24 hours. Patient instructed to follow-up with oncology in the outpatient setting for biopsy report. Patient denies nausea or vomiting reports not much of an appetite and has been started on Marinol. Patient is afebrile denies chest pain or shortness of breath. Review of systems: Constitutional: No reports of fatigue, fever, or chills Cardiovascular: No reports of chest pain or palpitations Respiratory: No reports of shortness of breath or cough GI: No reports of nausea, vomiting, or diarrhea : No reports of dysuria or retention Neurovascular: No reports of weakness or numbness All medications have been reviewed Active Medications Apixaban (Apixaban 5 Mg Tab) 10 mg PO BID [facility]; Protocol Stop: 09/28/22 09:01 Dronabinol (Dronabinol 2.5 Mg Cap) 2.5 mg PO AC-BID [facility] Last Admin: 09/21/22 08:05 Dose: Not Given Famotidine (Famotidine 20 Mg Tab) 20 mg PO DAILY [facility] Last Admin: 09/21/22 08:11 Dose: 20 mg Lisinopril/HCTZ (Lisinopril-Hctz 10-12.5 Mg 1 Each Tab) 1 each PO DAILY [facility] Last Admin: 09/21/22 08:11 Dose: 1 each Ceftriaxone Sodium 1 gm/ (Sodium Chloride) 50 mls @ 100 mls/hr IVPB DAILY@2100 [facility]; Protocol Last Admin: 09/20/22 19:46 Dose: 100 mls/hr Magnesium Oxide (Magnesium Oxide 400 Mg Tab) 400 mg PO DAILY [facility] Last Admin: 09/21/22 08:11 Dose: 400 mg Miscellaneous Information (Potassium Replacement Protocol 1 Each Misc) 1 each M ISCELLANE DAILY PRN; Protocol PRN Reason: Per Protocol Ondansetron HCl (Ondansetron 4 Mg/2 Ml Vial) 4 mg IVP Q6HR PRN PRN Reason: Nausea And Vomiting Physical exam: Patient is sitting up in the chair comfortably, no acute distress, awake alert and oriented.. HEENT: Normocephalic. Neck is supple. Pupils reactive. Nostrils clear. Oral cavity is moist. Neck reveals no JVD, carotid bruits, or thyromegaly. CHEST EXAMINATION: Trachea is central. Symmetrical expansion. Lung cantu clear to auscultation and percussion. CARDIAC: Normal S1, S2 with no gallops. No murmurs ABDOMEN: Soft. Bowel sounds present. Nontender. No organomegaly. No abdominal bruits. Extremities: reveal no edema. No clubbing or cyanosis Neurologically awake, alert, oriented x3 with well-coordinated movements. No focal deficits noted Skin: No rash or skin lesions. Psychiatric: Coperative. Nonsuicidal, Musculoskeletal: No joint swelling or deformity. Normal range of motion. Assessment: Acute bilateral PE with extensive clot at the origin of the right main pulmonary artery extending into the right middle lobe and right lower lobe in addition to filling defects on the left. Bilateral lower extremity DVT likely due to underlying malignancy Possible pancreatic mass with malignancy with metastasis Possible acute urinary tract infection, present on admission with Klebsiella pneumonia Hypertension Hyperlipidemia GERD DVT prophylaxis patient is already on heparin drip Plan: Patient is on oxygen supplementation and heparin drip. IV heparin being discontinued and patient will start oral anticoagulant this evening and discussed with hematology/oncology Interventional radiology followed the patient today and is post liver biopsy recommending observing overnight as the biopsy was deep for any further complications Urine culture finalized showing Klebsiella pneumonia and is continued on ceftriaxone and will continue for now Due to multiple complex medical issues, prognosis is guarded Possible discharge in 24 hours The impression and plan of care has been dictated by Gisele Torres, Nurse Practitioner as directed. Dr. Allan MD I have performed a history and examination and MDM of this patient, discussed the same with the dictator, and agree with the dictator's assessment and plan as written ,documented as a scribe. Based on total visit time, I have performed more than 50% of the visit. Objective - Vital Signs Vital signs: Vital Signs Temp 97.3 F L 09/21/22 08:00 Pulse 95 09/21/22 08:00 Resp 17 09/21/22 08:00 BP 117/55 09/21/22 08:00 Pulse Ox 96 09/21/22 08:00 FiO2 Intake & Output 09/20/22 09/21/22 09/21/22 18:59 06:59 18:59 Intake Total 598 205.061 196.744 Balance 598 205.061 196.744 Intake: Intake, IV Titration 205.061 196.744 Amount Heparin Sod,Pork in 0.45% 205.061 196.744 NaCl 25,000 unit In 0.45 % NaCl 1 250ml.bag @ 18 UNITS/KG/HR 15.594 mls/hr IV .Q16H2M [facility] Rx#: [id number] Oral 598 Other: Voiding Method Bedside Commode Bedside Commode # Voids 1 3 1 - Labs CBC & Chem 7: 09/20/22 10:17 09/21/22 06:49 Labs: Abnormal Lab Results - Last 24 Hours (Table) 09/20/22 09/20/22 09/21/22 Range/Units 10:17 10:17 06:49 APTT 43.7 H 49.4 H (22.0-30.0) sec Sodium 135 L (137-145) mmol/L Potassium 3.3 L (3.5-5.1) mmol/L Glucose 200 H (74-99) mg/dL Calcium 8.1 L (8.4-10.2) mg/dL 09/21/22 Range/Units 06:49 APTT (22.0-30.0) sec Sodium (137-145) mmol/L Potassium 3.4 L (3.5-5.1) mmol/L Glucose 108 H (74-99) mg/dL Calcium 8.0 L (8.4-10.2) mg/dL Microbiology - Last 24 Hours (Table) 09/17/22 10:20 Blood Culture - Preliminary Blood No Growth after 72 hours 09/17/22 10:15 Blood Culture - Preliminary Blood No Growth after 72 hours
[2022-09-21] MEDS: HEPARIN SOD,PORK IN 0.45% NACL 25,000 UNIT in 0.45% NACL 1 250ML.BAG IV SCH (16:52)
[2022-09-21] MEDS: APIXABAN 5 MG TAB PO SCH (21:36)
[2022-09-22 04:17] VITALS: PULSE 83
[2022-09-22 08:34] VITALS: BP 105/47; RESP 17; TEMP 98.1
[2022-09-22] MEDS: MAGNESIUM OXIDE 400 MG TAB PO SCH (08:35)
[2022-09-22] MEDS: FAMOTIDINE 20 MG TAB PO SCH (08:35)
[2022-09-22] MEDS: LISINOPRIL-HCTZ 10-12.5 MG 1 EACH TAB PO SCH (08:35)
[2022-09-22] MEDS: APIXABAN 5 MG TAB PO SCH (08:35)
[2022-09-22] MEDS ORDERED: POTASSIUM CHLORIDE ER 20 MEQ TAB.ER PO STA (09:38)
--- NOTE | 2022-09-22 13:05 | P.PN ---
Subjective Progress Note Date: 09/22/22 On today's evaluation of 09/18/2021, the patient is hemodynamically stable and she has no specific complaints. She remains on IV heparin for now. As mentioned earlier, the patient presented to us with shortness of breath. She was diagnosed having bilateral lower extremity DVT and pulmonary embolism and there was extensive pulmonary embolism on the right side with a distal right main pulmonary artery occlusion. Nevertheless, no significant strain pattern and there is no significant pulmonary hypertension echocardiogram. The patient's troponins were also negative and she remained hemodynamically stable. Currently she is on oxygen at 2 L. Meanwhile, there is a concern for malignancy. The CAT scan of the chest showed a pancreatic mass. This was further investigated by CAT scan of the abdomen and the CAT scan of the abdomen confirmed the findings. The pancreas showed a globally to 6.5 x 4.5 x 4 cm mass in the pancreatic body immediately cephalad to the upper right margin of the mass there is a cardiac 2 cm lymph node and the liver also showed multifocal rounded ill-defined densities consistent with metastases largest being 4 cm in size. There are other smaller lesions measuring 2 cm in size. Please refer to the detailed CAT scan of the abdomen regarding those findings. The patient has no specific complaints for now. No abdominal pain. She is tolerating her diet. The physical is at 7.1 with a hemoglobin of 11.7. Her tumor marker with CAD 19.9 came back elevated at 2230. PTT is being monitored most recent PTT is at 40.7. 09/19/2021, the patient remains on IV heparin. Hemodynamically stable. No evidence of any bleeding. We are looking into a fine-needle aspirate by interventional radiology by Wednesday. PTT today's 47. Normal electrolytes. Normal renal function. Hemoglobin stable at 12.4 and a white cell count is 10.2 with a platelet count of 216. Ultrasound of the abdomen was also done and it showed a mental mass/soft tissue mass. 09/20/2021, the patient remains on IV heparin. No complaints. Doing well. The plan is to do today fine-needle aspirate of a liver mass tomorrow. Meanwhile, she remains hemodynamically stable. No signs of any bleeding. She is in good spirits. She is on room air oxygen. No pleurisy. No hemoptysis. No other issues for now. The patient is seen today 09/21/2021 in follow-up on the selective care unit. She is currently sitting up in a chair at the bedside. Awake and alert in no acute distress. She is maintaining good O2 saturations in the 90s on room air. She denies any chest pain or worsening shortness of breath. She remains on a heparin drip. The plan is to undergo biopsy of the omental today. Blood cultures revealed no growth. Urine culture positive for Klebsiella pneumoniae. Sodium 137. Potassium 3.4. BUN 9. Creatinine 0.58. She is currently on antibiotics in the form of ceftriaxone. The patient is seen today 09/22/2021 in follow-up on the selective care unit. She is currently up ambulating in her room. Awake and alert in no acute distress. She did undergo a successful ultrasound-guided biopsy of the peritoneal mass. Pathology pending. She is maintaining good O2 saturations in the 90s on room air. She's been afebrile. Hemodynamically stable. She's been transitioned to Eliquis. Currently on ceftriaxone. Urine culture positive for Klebsiella pneumoniae. Blood culture revealed no growth. Objective - Vital Signs Vital signs: Vital Signs Temp 98.1 F 09/22/22 08:30 Pulse 83 09/22/22 08:30 Resp 17 09/22/22 08:30 BP 105/47 09/22/22 08:30 Pulse Ox 94 L 09/22/22 08:30 FiO2 Intake & Output 09/21/22 09/22/22 09/22/22 18:59 06:59 18:59 Intake Total 674.744 Balance 674.744 Weight 86.636 kg Intake: Intake, IV Titration 196.744 Amount Heparin Sod,Pork in 0.45% 196.744 NaCl 25,000 unit In 0.45 % NaCl 1 250ml.bag @ 18 UNITS/KG/HR 15.594 mls/hr IV .Q16H2M [facility] Rx#: [id number] Oral 478 Other: Voiding Method Bedside Commode # Voids 3 1 - Exam GENERAL EXAM: Alert, very pleasant 72-year-old female, on room air, ambulating in her room, comfortable in no apparent distress. HEAD: Normocephalic. EYES: Normal reaction of pupils, equal size. NOSE: Clear with pink turbinates. THROAT: No erythema or exudates. NECK: No masses, no JVD. CHEST: No chest wall deformity. LUNGS: Equal air entry with no crackles, wheeze, rhonchi or dullness. CVS: S1 and S2 normal with no audible murmur, regular rhythm. ABDOMEN: No hepatosplenomegaly, normal bowel sounds, no guarding or rigidity. SPINE: No scoliosis or deformity SKIN: No rashes CENTRAL NERVOUS SYSTEM: No focal deficits, tone is normal in all 4 extremities. EXTREMITIES: There is no peripheral edema. No clubbing, no cyanosis. Peripheral pulses are intact. - Labs CBC & Chem 7: 09/20/22 10:17 09/21/22 06:49 Labs: Microbiology - Last 24 Hours (Table) 09/17/22 10:20 Blood Culture - Preliminary Blood No Growth after 120 hours 09/17/22 10:15 Blood Culture - Preliminary Blood No Growth after 120 hours Assessment and Plan Assessment: Acute bilateral pulmonary embolism, with extensive clot at the origin of the right main pulmonary artery extending into the right middle lobe and the right lower lobe in addition to filling defects on the left. The patient also has bilateral lower extremity DVT. This is a provoked event probably related to underlying malignancy and the presentation is highly suspicious for metastatic pancreatic cancer. Ultrasound guided biopsy of the peritoneal mass performed 09/21/2022. Pathology pending Bilateral lower extremity DVTs Pancreatic mass with peripancreatic lymphadenopathy and hypodense hepatic lesions Abdominal pain secondary to above Generalized weakness Mild lactic acidosis, improving Hypertension Hyperlipidemia Plan: The patient was seen and evaluated Currently stable and on room air Biopsy of the peritoneal mass performed 09/21/2022 Transitioned to [place] Plan is her home today in follow-up with oncology I have personally seen and examined the patient, performed the documentation and the assessment and plan as written. Number of minutes spent on the visit: 10.
--- NOTE | 2022-09-22 16:30 | P.PN ---
Subjective Progress Note Date: 09/22/22 Principal diagnosis: BIlateral PE, DVT, Suspected Metastatic Cancer Pt is sitting up in bed with family at bedside. Pt reports feeling well overall, no reported complaints, abd incision is covered with bandaid, no unusual pain in the area Objective - Vital Signs Vital signs: Vital Signs Temp 98.1 F 09/22/22 08:30 Pulse 83 09/22/22 08:30 Resp 17 09/22/22 08:30 BP 105/47 09/22/22 08:30 Pulse Ox 94 L 09/22/22 08:30 FiO2 Intake & Output 09/21/22 09/22/22 09/22/22 18:59 06:59 18:59 Intake Total 674.744 Balance 674.744 Weight 86.636 kg Intake: Intake, IV Titration 196.744 Amount Heparin Sod,Pork in 0.45% 196.744 NaCl 25,000 unit In 0.45 % NaCl 1 250ml.bag @ 18 UNITS/KG/HR 15.594 mls/hr IV .Q16H2M [facility] Rx#: [id number] Oral 478 Other: Voiding Method Bedside Commode # Voids 3 1 - Constitutional General appearance: Present: average body habitus, cooperative, no acute distress - EENT Eyes: Present: anicteric sclerae, EOMI ENT: Present: hearing grossly normal - Respiratory Details: breathing even and midly labored - Cardiovascular Details: skin warm and dry - Integumentary Integumentary: Present: normal - Neurologic Neurologic Comment(s): grossly intact Neurologic: Present: CNII-XII intact - Musculoskeletal Musculoskeletal: Present: strength equal bilaterally - Psychiatric Psychiatric: Present: A&O x's 3 - Labs CBC & Chem 7: 09/20/22 10:17 09/21/22 06:49 Labs: Microbiology - Last 24 Hours (Table) 09/17/22 10:20 Blood Culture - Preliminary Blood No Growth after 120 hours 09/17/22 10:15 Blood Culture - Preliminary Blood No Growth after 120 hours Assessment and Plan (1) Pancreatic mass Status: Acute Priority: High Code(s): K86.89 - OTHER SPECIFIED DISEASES OF PANCREAS SNOMED Code(s): 883416165 (2) DVT (deep venous thrombosis) Status: Acute Priority: High Code(s): I82.409 - ACUTE EMBOLISM AND THOMBOS UNSP DEEP VN UNSP LOWER EXTREMITY SNOMED Code(s): 880700518 (3) Pulmonary embolism Status: Acute Priority: High Code(s): I26.99 - OTHER PULMONARY EMBOLISM WITHOUT ACUTE COR PULMONALE SNOMED Code(s): 37881449 (4) Liver lesion Status: Acute Priority: High Code(s): K76.9 - LIVER DISEASE, UNSPECIFIED S NOMED Code(s): 494611208 Plan: Pancreatic mass, lymphadenopathy, liver lesions, omental caking -Summarized hospital course with patient, her and daughter at the bedside. Imaging highly concerning for malignancy. -Biopsy was done yesterday, pending path -Pt has f/u planned with Dr. Webb on 10/01/22 to discuss biopsy results and treatment options, appt in discharge instructions -From hem/onc standpoint, pt is ok for discharge once cleared by IM and other specialities involved in her care Bilateral PE, bilateral lower extremity DVT -Breathing has improved, mildly labored at rest -Heparin discontinued. Started on eliquis. Case management provided patient and family with eliquis coupons and option for medcaid assistance in prescription coverage -No provoking factors noted. Most likely cause, underlying malignancy. Duration of anticoagulation likely lifetime if metastatic malignancy.
[2022-09-22] MEDS ORDERED: MAGNESIUM OXIDE 400 MG TAB PO SCH (21:00)
--- NOTE | 2022-09-23 21:03 | P.DS ---
Providers Date of admission: 09/17/22 12:09 Expected date of discharge: 09/22/22 Attending physician: Rakan Dumont MD Consults: 09/17/22 12:07 Consult Physician Urgent Consulting Provider: Balwinder Collins Consult Reason/Comments: Pancreatic mass Do you want consulting provider notified?: Yes 09/17/22 13:23 Consult Physician Urgent Consulting Provider: Iain Garza Consult Reason/Comments: shortness of breath, PE Do you want consulting provider notified?: Yes 09/17/22 13:24 Consult Physician Routine Consulting Provider: Prasad Howard Consult Reason/Comments: shortness of breath, ? chf Do you want consulting provider notified?: Yes Primary care physician: Xiang Carmichael [facility] Course: Final diagnosis Acute bilateral PE with extensive clot at the origin of the right main pulmonary artery extending into the right middle lobe and right lower lobe in addition to filling defects on the left. Bilateral lower extremity DVT likely due to underlying malignancy Positive pancreatic mass with malignancy with metastasis, pancreaticobiliary primary as noted on biopsy of liver acute urinary tract infection, present on admission with Klebsiella pneumonia Hypertension Hyperlipidemia GERD DVT prophylaxis Discharge disposition Patient is being discharged in a stable condition with guarded prognosis to home. Patient will follow-up with Dr. Carmichael in the outpatient setting upon discharge. Patient is to follow up with Dr. Webb as scheduled to discuss results. Total time taken is greater than 35 minutes. Hospital course This is a 72-year-old female who was recently admitted with shortness of breath and found to have PE and DVT of bilateral lower extremities. Pancreatic mass noted as well and patient has been losing weight. Patient had liver biopsy done and final pathology pending. To follow up with oncology outpatient. Pancreatic cancer with malignancy highly suspicious. Patient to continue on eliquis on discharge. Currently no reports of chest pain, shortness of breath, or palpitations. Patient is afebrile. No reports of nausea or vomiting and patient is tolerating diet. Patient will be discharged home today. Guarded prognosis. Physical exam: Gen: This is a 72 year old female who is awake, alert, and oriented x3. Well developed, well nourished HEENT: Head is atraumatic, normocephalic. Pupils equal, round. Sclerae is anicteric. NECK: Supple. No JVD. No lymphadenopathy. No thyromegaly. LUNGS: Clear to auscultation. No wheezes or rhonchi. No intercostal retractions. HEART: Regular rate and rhythm. No murmur. ABDOMEN: Soft. Bowel sounds are present. No masses. No tenderness. EXTREMITIES: No pedal edema. No calf tenderness. NEUROLOGICAL: Patient is awake, alert and oriented x3. Cranial nerves 2 through 12 are grossly intact. Please refer to medication reconciliation sheet for a list of medications. The impression and plan of care has been dictated by Gisele Torres, Nurse Practitioner as directed. Dr. Allan MD I have performed a history and examination and MDM of this patient, discussed the same with the dictator, and agree with the dictator's assessment and plan as written ,documented as a scribe. Based on total visit time, I have performed more than 50% of the visit. Patient Condition at Discharge: Fair Plan - Discharge Summary Discharge Rx Participant: Yes New Discharge Prescriptions: New Apixaban [Eliquis Starter Pack (for VTE)] 5 - 10 mg PO DIRECTED 30 Days #1 each dronabinoL [Marinol] 2.5 mg PO AC-BID #20 cap cefUROXime axetiL [Ceftin] 500 mg PO BID 3 Days #6 tab Continue Atorvastatin [Lipitor] 80 mg PO DIRECTED Lisinopril-Hctz 10-12.5 mg [Zestoretic 10-12.5] 1 tab PO DAILY Famotidine [Pepcid] 20 mg PO BID Changed Magnesium Oxide [Mag-Ox] 400 mg PO BID 30 Days #60 tab Discharge Medication List Atorvastatin [Lipitor] 80 mg PO DIRECTED 01/23/16 [History] Famotidine [Pepcid] 20 mg PO BID 09/17/22 [History] Lisinopril-Hctz 10-12.5 mg [Zestoretic 10-12.5] 1 tab PO DAILY 09/17/22 [History] Apixaban [Eliquis Starter Pack (for VTE)] 5 - 10 mg PO DIRECTED 30 Days #1 each 09/21/22 [Rx] Magnesium Oxide [Mag-Ox] 400 mg PO BID 30 Days #60 tab 09/22/22 [Rx] cefUROXime axetiL [Ceftin] 500 mg PO BID 3 Days #6 tab 09/22/22 [Rx] dronabinoL [Marinol] 2.5 mg PO AC-BID #20 cap 09/22/22 [Rx] Follow up Appointment(s)/Referral(s): [facility] [REFERRING] - Neeta Webb MD [STAFF PHYSICIAN] - 10/01/22 11:00 am Xiang Carmichael DO [Primary Care Provider] - 1-2 days (Office did not answer, [facility]. ) Patient Instructions/Handouts: Pulmonary Embolism (DC), Deep Vein Thrombosis (DC) Activity/Diet/Wound Care/Special Instructions: Activity Limited until follow-up Follow-up with primary care provider on discharge continue taking Eliquis 10 mg twice daily for the next 6 days and then titrate down to 5 mg twice daily thereafter Follow-up with hematology/oncology outpatient Continue current diet Discharge/Stand Alone Forms: Who Do I Call?, Community Resources, Personal Driftman Discharge Disposition: HOME SELF-CARE
--- NOTE | 2022-09-25 14:47 | CDI ---
Documentation Clarification Form Date: 09/25/2022 2:33:24 PM From: [place] Elias Admit Date: 09/17/2022 12:09:00 PM Patient Name: Karmen Coleman Visit Number: [id number] Discharge Date: 09/22/2022 12:33:00 PM ATTENTION: The Clinical Documentation Specialists (CDI) and [facility] Coding Staff appreciate your assistance in clarifying documentation. Please respond to the clarification below the line at the bottom and electronically sign. The CDI & [facility] Coding staff will review the response and follow-up if needed. Please note: Queries are made part of the Legal Health Record. If you have any questions, please contact the author of this message via ITS. Dr. 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 Coding guidelines do not allow coding professionals to code based on pathology results; therefore, clarification is requested. History/risk factors: H&P states "possible pancreatic mass with malignancy with metastasis". Also noted, pancreatic mass, lymphadenopathy, liver lesions, omental caking. Clinical Indicators: Unintentional loss of weight and shortness of breath Treatment: Omental biopsy performed on 09/21 Please clarify if you agree with the pathology report diagnosis of omental adenocarcinoma: [ ] Yes [ ] primary [ ] metastatic [ ] No [ ] Other (please specify) [ ] Unable to determine Unable to determine, not my pt MTDD
--- NOTE | 2022-10-01 12:59 | CDI ---
Documentation Clarification Form Date: 09/25/2022 2:33:24 PM From: [place] Eli[place] Admit Date: 09/17/2022 12:09:00 PM Patient Name: Karmen Coleman Visit Number: [id number] Discharge Date: 09/22/2022 12:33:00 PM ATTENTION: The Clinical Documentation Specialists (CDI) and [facility] Coding Staff appreciate your assistance in clarifying documentation. Please respond to the clarification below the line at the bottom and electronically sign. The CDI & [facility] Coding staff will review the response and follow-up if needed. Please note: Queries are made part of the Legal Health Record. If you have any questions, please contact the author of this message via ITS. Dr. 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 Coding guidelines do not allow coding professionals to code based on pathology results; therefore, clarification is requested. History/risk factors: H&P states "possible pancreatic mass with malignancy with metastasis". Also noted, pancreatic mass, lymphadenopathy, liver lesions, omental caking. Clinical Indicators: Unintentional loss of weight and shortness of breath Treatment: Omental biopsy performed on 09/21 Please clarify if you agree with the pathology report diagnosis of omental adenocarcinoma: [ ] Yes [ ] primary [ ] metastatic [ ] No [ ] Other (please specify) [ ] Unable to determine MTDD
== END 2022-09-22 12:33 | disposition home or self-care (01) | DRG 176 ==
LOC: EC 08:50 → 3SCARD 12:09
PROVIDERS: ADMIT Internal Medicine; ATTEND Internal Medicine
DX: I26.99 Other pulmonary embolism without acute cor pulmonale (principal); N39.0 Urinary tract infection, site not specified; C25.9 Malignant neoplasm of pancreas, unspecified; C78.7 Secondary malignant neoplasm of liver and intrahepatic bile duct; I82.433 Acute embolism and thrombosis of popliteal vein, bilateral; Z20.822 Contact with and (suspected) exposure to COVID-19; E78.5 Hyperlipidemia, unspecified; K21.9 Gastro-esophageal reflux disease without esophagitis; I10 Essential (primary) hypertension; Z66 Do not resuscitate; Z79.899 Other long term (current) drug therapy; Z79.1 Long term (current) use of non-steroidal anti-inflammatories (NSAID)
CPT/HCPCS: 20206; 36415; 70450; 71046; 71275; 74176; 76705; 76942; 80048; 80053; 81001; 83605; 83735; 83880; 84443; 84484; 85025; 85027; 85379; 85610; 85730; 86301; 87040; 87077; 87086; 87186; 87636; 88184; 88185; 88305; 88341; 88342; 93005; 93306; 93970; 94760; 96361; 96365; 96366; 99291